=== PATIENT | male | born 1955 | race Caucasian/White ===

== ENCOUNTER 2024-06-12 14:08 | Emergency (ER) | payer BC, SELFPAY ==
[2024-06-12 14:12] VITALS: BP 115/59
--- NOTE | 2024-06-12 15:59 | ED.GENMED ---
History of Present Illness
General
Chief Complaint: Skin Problem
Source: patient and other (Sister)
Time Seen by Provider: 06/12/24 15:17
History of Present Illness
History of Present Illness:
69-year-old male present with a outpatient diagnosis of DVT. Ongoing wound to the right leg. This has been there for weeks. Currently on a cephalosporin and topical antibiotic ointment. No fever chills no chest pain no shortness of breath no
unusual pain in the leg. Patient was sent for further care and possible wound care management.
Past History
Past History
ED Past Medical History: HTN, Hypercholesterolemia and NIDDM
ED Past Surgical History: Orthopedic
Review of Systems
Review of Systems
All Other Systems: Not applicable
Constitutional: Denies fever or chills
Respiratory: Denies trouble breathing
Cardiac: Denies chest pain or syncope
Phy Exam
Physical Exam
Physical Exam:
GENERAL: Alert and oriented in no apparent distress
EYE: Orbits normal.
CARDIAC: Regular rate and rhythm without any obvious murmurs.
LUNGS: Clear breath sounds,normal
ABDOMEN: Soft, without focal tenderness or distention
NEUROLOGICAL: Alert and oriented , grossly non-focal
SKIN: Warm and dry, chronic appearing wound to the right lower anterior tibia approximately 2 x 6 cm. Full thickness. Surrounding hyperpigmentation changes but no obvious cellulitis.
MUSCULOSKELETAL: Mild swelling of the right lower leg with mild swelling towards the ankle. Great distal pulses.
PSYCH: Normal and appropriate interaction.
Course
Orders/Labs/Results
Orders:
Orders
06/12/24 15:49
IV Insert/Care/Rem.- Treatment PRN
06/12/24 16:19
Complete Blood Count/With Diff Urgent
PT/INR [Prothrombin Time] Urgent
PTT Urgent
06/12/24 17:03
Basic Metabolic Panel Urgent
06/12/24 18:05
Rivaroxaban [Xarelto] 15 mg PO NOW STA
Abnormal Lab Results
06/12/24 06/12/24
16:19 17:03
RBC 3.86 L 10^6/uL
(4.70-6.10)
Hgb 11.1 L g/dL
(13.0-18.0)
Hct 33.2 L %
(39.0-52.0)
MPV 3.8 L fL
(7.4-10.4)
Absolute Monos (auto) 0.8 H 10^3/uL
(0.1-0.6)
Monocytes % 11.4 H %
(1.7-9.3)
Chloride 96 L mmol/L
(98-107)
Carbon Dioxide 33 H mmol/L
(22-30)
BUN 30 H mg/dl
(9-20)
Glucose 298 H mg/dl
(70-99)
06/12/24 16:19
06/12/24 17:03
Vital Signs
Initial and Last Documented VS:
Initial Vital Signs
Temp Pulse Resp BP Pulse Ox
97.8 F 71 18 115/59 96
06/12/24 14:12 06/12/24 14:12 06/12/24 14:12 06/12/24 14:12 06/12/24 14:12
Last Documented Vital Signs
Temp Pulse Resp BP Pulse Ox
97.8 F 68 18 108/63 99
06/12/24 14:12 06/12/24 16:22 06/12/24 16:22 06/12/24 16:22 06/12/24 16:22
MDM/Problems Addressed
Differential Diagnosis Includes:
Report sent by the primary care office. Extensive nonocclusive DVT throughout the right lower extremity. The wound clinically does not appear acutely infected. I sent pictures of the wound to our wound care physician. He was in agreement. No
contraindication anticoagulation. No GI bleed. No central bleed. No bleeding disorder. Medical management appropriate would be outpatient oral DOAC continued temporary wound care until followed up by the wound care center.
*Critical Care Note
Total Time (30-74mins, 75-104mins- exclusive of procedures): Not Applicable
Update Note
Update Note:
Patient is remained stable and nontoxic. Again reviewed with wound care. Agree does not indicate admission. Continue local wound care, DOAC. Patient is aware of the risk benefits. No contraindication. Will follow-up closely
ED Attending Note
-
Portions of this chart may have been created with voice recognition software.� Occasional wrong word or��sound alike� substitutions may have occurred due to the inherent limitations of voice recognition software.
Discharge Plan
Departure
Patient Disposition: Home (Routine Discharge)
Date of Disposition: 06/12/24
Time of Disposition: 18:06
Patient with high blood pressure during this ER visit?: No
Discharge Problem:
DVT right lower leg, Chronic wound right lower leg, Hyperglycemia
Instructions: Deep vein thrombosis (blood clot in the leg), Wound Care (DC), Taking oral medicines for blood clots, High Blood Sugar, Adult ED, BLOOD PRESSURE
Prescriptions:
New
Xarelto 20 mg tablet
20 mg PO DAILY Qty: 10 0RF
Xarelto 15 mg tablet
15 mg PO BID 21 Days Qty: 42 0RF
Referrals:
Wound Care Center [Outside] - Follow up in 5-7 days
Isidoro Mendez MD [Family Provider] -
Activity Restrictions/Additional Instructions:
Start with the 15 mg tablet. 1 tablet 2 times per day for 21 days.
Then changed to the 20 mg tablet. However you only take 1 tablet/day
Follow-up closely with your primary physician. This medication will need to be continued beyond the 1 month
Call the wound care center Saturday for close follow-up early in the week. Let them know we talked to the wound care physician
Interventions
Interventions:
*Risk Screen - Suicide Last Done: 06/12/24 14:10
*General Assessment Last Done: 06/12/24 14:12
*Neglect/Abuse Screening Last Done: 06/12/24 14:12
ED- Fall Risk Assessment Last Done: 06/12/24 16:20
*ED COVID-19 Vaccine History Last Done: 06/12/24 16:20
Discharge Date and Time
Print Language: BELARUSIAN
[2024-06-12 16:22] VITALS: BP 108/63
[2024-06-12 16:36] LABS: % Basophils 0.9 % (0-2); % Immature Granulocytes 0.3 % (0-0.5); % Lymphocytes 21.5 % (20.5-51.1); % Monocytes 11.4 % (1.7-9.3); % Neutrophils 62.9 % (42.2-75.2); Absolute Basophils 0.1 10^3/uL (0-0.2); Absolute Eosinophils 0.2 10^3/uL (0-0.7); Absolute Lymphocytes 1.4 10^3/uL (1.2-3.4); Absolute Monocytes 0.8 10^3/uL (0.1-0.6); Absolute Neutrophils 4.2 10^3/uL (1.4-6.5); Hematocrit 33.2 % (39.0-52.0); Hemoglobin 11.1 g/dL (13.0-18.0); Mean Corp Hgb Conc. 33.4 g/dL (33.0-37.0); Mean Corpuscular Hgb 28.8 pg (27.0-31.0); Nucleated Red Blood Cells % 0 % (-); Red Blood Cell Count 3.86 10^6/uL (4.70-6.10); Red Cell Dist. Width 12.6 % (11.5-14.5); White Blood Cell Count 6.6 10^3/uL (4.8-10.8)
[2024-06-12 16:38] LABS: INR 1.08; PT 13.8 Sec (11.4-14.6)
[2024-06-12 16:39] LABS: APTT 29.5 Sec (23.4-35.0)
[2024-06-12 16:49] LABS: Platelet Count 337 10^3/uL (130-400)
[2024-06-12 16:50] LABS: Mean Platelet Volume 3.8 fL (7.4-10.4)
[2024-06-12 17:49] LABS: Blood Urea Nitrogen 30 mg/dl (9-20); Calcium 9.9 mg/dl (8.4-10.2); Carbon Dioxide 33 mmol/L (22-30); Chloride 96 mmol/L (98-107); Glucose 298 mg/dl (70-99); Potassium 4.3 mmol/L (3.5-5.1); Sodium 137 mmol/L (135-145); eGFR > 60.00
[2024-06-12] MEDS: XARELTO 15 MG PO (19:09)
[2024-06-12 19:15] VITALS: BP 124/57
== END 2024-06-12 19:21 | disposition home or self-care (01) ==
LOC: EMR 14:08
PROVIDERS: EMERGENCY PHYSICIAN Emergency Medicine; FAMILY PHYSICIAN Internal Medicine
DX: I82.401 Acute embolism and thrombosis of unspecified deep veins of right lower extremity (principal); S81.801A Unspecified open wound, right lower leg, initial encounter; E11.65 Type 2 diabetes mellitus with hyperglycemia; X58.XXXA Exposure to other specified factors, initial encounter; I10 Essential (primary) hypertension; E78.00 Pure hypercholesterolemia, unspecified
CPT/HCPCS: 99283; 80048; 85025; 85610; 85730

== ENCOUNTER → 2024-06-16 08:19 | Outpatient (REF) | payer BC, SELFPAY | LOC: WOUND 08:19 | PROVIDERS: ATTENDING PHYSICIAN Surgery; FAMILY PHYSICIAN Internal Medicine | DX: I87.311 Chronic venous hypertension (idiopathic) with ulcer of right lower extremity (principal); L97.212 Non-pressure chronic ulcer of right calf with fat layer exposed; I87.2 Venous insufficiency (chronic) (peripheral); I73.9 Peripheral vascular disease, unspecified; Z79.01 Long term (current) use of anticoagulants; I82.4Z1 Acute embolism and thrombosis of unspecified deep veins of right distal lower extremity; I10 Essential (primary) hypertension | CPT/HCPCS: 11042; 99204 ==

== ENCOUNTER → 2024-06-23 10:34 | Outpatient (REF) | payer BC, SELFPAY | LOC: WOUND 10:34 | PROVIDERS: ATTENDING PHYSICIAN Surgery; FAMILY PHYSICIAN Internal Medicine | DX: I87.311 Chronic venous hypertension (idiopathic) with ulcer of right lower extremity (principal); L97.212 Non-pressure chronic ulcer of right calf with fat layer exposed; I87.2 Venous insufficiency (chronic) (peripheral); I73.9 Peripheral vascular disease, unspecified; I82.4Z1 Acute embolism and thrombosis of unspecified deep veins of right distal lower extremity; I10 Essential (primary) hypertension; Z79.01 Long term (current) use of anticoagulants | CPT/HCPCS: 11042 ==

== ENCOUNTER → 2024-07-09 11:34 | Outpatient (REF) | payer BC, SELFPAY | LOC: WOUND 11:34 | PROVIDERS: ATTENDING PHYSICIAN Surgery; FAMILY PHYSICIAN Internal Medicine | DX: I87.311 Chronic venous hypertension (idiopathic) with ulcer of right lower extremity (principal); L97.212 Non-pressure chronic ulcer of right calf with fat layer exposed; I87.2 Venous insufficiency (chronic) (peripheral); I73.9 Peripheral vascular disease, unspecified; I82.4Z1 Acute embolism and thrombosis of unspecified deep veins of right distal lower extremity; I10 Essential (primary) hypertension; Z79.01 Long term (current) use of anticoagulants | CPT/HCPCS: 11042 ==

== ENCOUNTER → 2024-07-21 10:28 | Outpatient (REF) | payer BC, SELFPAY | LOC: WOUND 10:28 | PROVIDERS: ATTENDING PHYSICIAN Surgery; FAMILY PHYSICIAN Internal Medicine | DX: I87.311 Chronic venous hypertension (idiopathic) with ulcer of right lower extremity (principal); L97.212 Non-pressure chronic ulcer of right calf with fat layer exposed; I87.2 Venous insufficiency (chronic) (peripheral); I73.9 Peripheral vascular disease, unspecified; Z79.01 Long term (current) use of anticoagulants; I82.4Z1 Acute embolism and thrombosis of unspecified deep veins of right distal lower extremity; I10 Essential (primary) hypertension | CPT/HCPCS: 99213 ==

== ENCOUNTER → 2024-07-30 09:59 | Outpatient (REF) | payer BC, SELFPAY | LOC: WOUND 09:59 | PROVIDERS: ATTENDING PHYSICIAN Surgery; FAMILY PHYSICIAN Internal Medicine | DX: I87.311 Chronic venous hypertension (idiopathic) with ulcer of right lower extremity (principal); L97.212 Non-pressure chronic ulcer of right calf with fat layer exposed; I87.2 Venous insufficiency (chronic) (peripheral); I73.9 Peripheral vascular disease, unspecified; Z79.01 Long term (current) use of anticoagulants; I82.4Z1 Acute embolism and thrombosis of unspecified deep veins of right distal lower extremity; I10 Essential (primary) hypertension | CPT/HCPCS: 99213 ==

== ENCOUNTER → 2024-08-13 10:30 | Outpatient (REF) | payer BC, SELFPAY | LOC: WOUND 10:30 | PROVIDERS: ATTENDING PHYSICIAN Surgery; FAMILY PHYSICIAN Internal Medicine | DX: I87.311 Chronic venous hypertension (idiopathic) with ulcer of right lower extremity (principal); L97.212 Non-pressure chronic ulcer of right calf with fat layer exposed; I87.2 Venous insufficiency (chronic) (peripheral); I73.9 Peripheral vascular disease, unspecified; I82.4Z1 Acute embolism and thrombosis of unspecified deep veins of right distal lower extremity; Z79.01 Long term (current) use of anticoagulants; I10 Essential (primary) hypertension | CPT/HCPCS: 99213 ==

== ENCOUNTER → 2024-08-28 13:31 | Outpatient (REF) | payer BC, SELFPAY | LOC: RAD 13:31 | PROVIDERS: ATTENDING PHYSICIAN Surgery; FAMILY PHYSICIAN Internal Medicine | DX: I87.311 Chronic venous hypertension (idiopathic) with ulcer of right lower extremity (principal); I73.9 Peripheral vascular disease, unspecified | CPT/HCPCS: 93922; 93925; 93971 ==

== ENCOUNTER → 2024-09-03 10:41 | Outpatient (REF) | payer BC, SELFPAY | LOC: WOUND 10:41 | PROVIDERS: ATTENDING PHYSICIAN Surgery | DX: I87.311 Chronic venous hypertension (idiopathic) with ulcer of right lower extremity (principal); L97.212 Non-pressure chronic ulcer of right calf with fat layer exposed; I87.2 Venous insufficiency (chronic) (peripheral); I73.9 Peripheral vascular disease, unspecified; I10 Essential (primary) hypertension; Z79.01 Long term (current) use of anticoagulants; Z86.718 Personal history of other venous thrombosis and embolism | CPT/HCPCS: 11043; 11046 ==

== ENCOUNTER → 2024-09-10 10:45 | Outpatient (REF) | payer BC, SELFPAY | LOC: WOUND 10:45 | PROVIDERS: ATTENDING PHYSICIAN Surgery; FAMILY PHYSICIAN Internal Medicine | DX: I87.311 Chronic venous hypertension (idiopathic) with ulcer of right lower extremity (principal); L97.212 Non-pressure chronic ulcer of right calf with fat layer exposed; I87.2 Venous insufficiency (chronic) (peripheral); I73.9 Peripheral vascular disease, unspecified; I82.4Z1 Acute embolism and thrombosis of unspecified deep veins of right distal lower extremity; I10 Essential (primary) hypertension; Z79.01 Long term (current) use of anticoagulants | CPT/HCPCS: 99213 ==

== ENCOUNTER 2024-09-15 14:02 | Inpatient (IN) | payer BC, MEDICARE, SELFPAY ==
[2024-09-15] VITALS (20 sets, daily range): BP systolic 102–165; BP diastolic 39–89
--- NOTE | 2024-09-15 10:57 | ED.GENMED ---
History of Present Illness
<EMILE Grimaldo - Last Filed: 09/15/24 13:00>
General
Chief Complaint: Male Genito-Urinary Symptoms
Source: patient and family
Exam Limitations: none
Time Seen by Provider: 09/15/24 10:56
Nursing documentation reviewed up to this point in time: agreed with
History of Present Illness
History of Present Illness:
Patient is a 69-year-old male who presents to the ER complaining of blood in urine for the past 2 days. Patient is on Xarelto for DVT in his right lower extremity .patient is a very poor historian. Pt lives with sister Patient presents with
complaints of blood in urine for the past several days however also mentions he has had at least a 30 pound weight loss over the past several weeks. He recently saw his family doctor and at that time his blood sugars were very high in the 500s.
Sister is at reports patient missed some of his dose of medication. Patient also complains of painful lump to his right inguinal area for the past several weeks. He denies any injury.
Past History
<EMILE Grimaldo - Last Filed: 09/15/24 13:00>
Past History
ED Past Medical History: HTN, Hypercholesterolemia and NIDDM
ED Past Surgical History: Orthopedic
Phy Exam
<EMILE Grimaldo - Last Filed: 09/15/24 13:00>
General Physical Exam
General Presentation: no apparent distress
General age: appears older than age
General Skin: warm and dry
General Habitus: cachetic
General Mental: alert
General Hydration: dry mucous membranes
Cardiovascular Exam
Cardiovascular Exam: regular rate/rhythm, no murmur and normal peripheral pulses
Pulmonary Exam
Pulmonary Exam: lungs clear and no respiratory distress
Gastrointestinal Exam
Gastrointestinal Exam: other (firm over bladder region with + soft mass (hernia) over right inguinal region )
Genitourinary Exam Male
Exam Male: other (+ blood dripping from penis )
Neurological Exam
Neurological Exam: alert and oriented x3
Musculoskeletal Exam
Musculoskeletal Exam: full ROM and other (rle with minimal swelling )
Skin Exam
Skin Exam: normal color and warm/dry
Psychiatric Exam
Psychiatric Exam: normal mood/affect
Course
<EMILE Grimaldo - Last Filed: 09/15/24 13:00>
Orders/Labs/Results
Orders:
Orders
09/15/24 10:57
Urinalysis Reflex To Culture Urgent
Date Specimen was Collected: 09/15/24
Time Specimen was Collected: 11:35
09/15/24 11:17
Iohexol [Omnipaque] See Protocol PO NOW STA
09/15/24 11:18
CT Abd/pel W Iv And Oral Contr Urgent
Comment:
Reason For Exam: abd pain weight loss
0.9% Sodium Chloride 1000 ml [Nss] 1,000 ml IV BOLUS
09/15/24 11:19
Bladder Scan- Treatment ONCE
09/15/24 11:37
Complete Blood Count/With Diff Urgent
Comprehensive Metabolic Panel Urgent
09/15/24 11:43
Leon [Leon Placement- Treatment] ONCE
Reason for insertion: Acute Retention
09/15/24 12:16
Insulin Human Regular [Novolin R] 6 units IV NOW STA
09/15/24 12:30
Leon Catheter [Catheter- Indwelling] As Directed
Reason for insertion: Urology Determination
Size: 22 Fr
Type: 3 way
Nursing to Place Non Medication Order As Directed
Physician Order: Hand-irrigate Leon with sterile solution until outflow is clear to pink
Above order entered?: Yes
09/15/24 12:31
Anti-embolism (JULIA) Hose As Directed
Type: Thigh high
Catheter-Hand Irrigation As Directed
Solution:: Sterile 0.9% NaCl
Amount: 500 ml
Frequency: prn obstruction
Reason for hand irrigation: prn obstruction
Irrigate via:: Catheter directly
Continous Bladder Irrigation As Directed
Solution: Normal Saline (NSS)
Comment: at rate to keep outflow clot-free
Keep urine: Free of clots
Pneumatic Compression Sleeves As Directed
Type: Thigh high
Vital Signs As Directed
Frequency: Per unit guidelines
DX Deep Vein Thrombosis Video Routine
Abnormal Lab Results
09/15/24
11:37
RBC 3.73 L 10^6/uL
(4.70-6.10)
Hgb 10.2 L g/dL
(13.0-18.0)
Hct 31.8 L %
(39.0-52.0)
MCHC 32.1 L g/dL
(33.0-37.0)
Plt Count 430 H 10^3/uL
(130-400)
Absolute Neuts (auto) 9.2 H 10^3/uL
(1.4-6.5)
Absolute Lymphs (auto) 0.3 L 10^3/uL
(1.2-3.4)
Neutrophils % 89.9 H %
(42.2-75.2)
Lymphocytes % 3.2 L %
(20.5-51.1)
Sodium 129 L mmol/L
(135-145)
Potassium 5.2 H mmol/L
(3.5-5.1)
Chloride 90 L mmol/L
(98-107)
Carbon Dioxide 20 L mmol/L
(22-30)
BUN 46 H mg/dl
(9-20)
Glucose 528 H* mg/dl
(70-99)
09/15/24 11:37
09/15/24 11:37
Vital Signs
Initial and Last Documented VS:
Initial Vital Signs
Temp Pulse Resp BP Pulse Ox
98.3 F 108 16 122/79 99
09/15/24 09:26 09/15/24 09:26 09/15/24 09:26 09/15/24 09:26 09/15/24 09:26
Last Documented Vital Signs
Temp Pulse Resp BP Pulse Ox
98.3 F 108 16 133/77 99
09/15/24 09:26 09/15/24 09:26 09/15/24 09:26 09/15/24 11:18 09/15/24 09:26
Cloth Weigher consulted with Physician
Cloth Weigher consulted with physician?: Yes
Name of Physician Consulted: DR Bazzi
<Gilson Bazzi, DO - Last Filed: 09/15/24 11:18>
Orders/Labs/Results
Orders:
Orders
09/15/24 10:57
Urinalysis Reflex To Culture Urgent
Date Specimen was Collected: 09/15/24
Time Specimen was Collected: 11:35
09/15/24 11:17
Iohexol [Omnipaque] See Protocol PO NOW STA
09/15/24 11:18
CT Abd/pel W Iv And Oral Contr Urgent
Comment:
Reason For Exam: abd pain weight loss
0.9% Sodium Chloride 1000 ml [Nss] 1,000 ml IV BOLUS
09/15/24 11:19
Bladder Scan- Treatment ONCE
09/15/24 11:37
Complete Blood Count/With Diff Urgent
Comprehensive Metabolic Panel Urgent
09/15/24 11:43
Leon [Leon Placement- Treatment] ONCE
Reason for insertion: Acute Retention
09/15/24 12:16
Insulin Human Regular [Novolin R] 6 units IV NOW STA
09/15/24 12:30
Leon Catheter [Catheter- Indwelling] As Directed
Reason for insertion: Urology Determination
Size: 22 Fr
Type: 3 way
Nursing [address] Non Medication Order As Directed
Physician Order: Hand-irrigate Leon with sterile solution until outflow is clear to pink
Above order entered?: Yes
09/15/24 12:31
Anti-embolism (JULIA) Hose As Directed
Type: Thigh high
Catheter-Hand Irrigation As Directed
Solution:: Sterile 0.9% NaCl
Amount: 500 ml
Frequency: prn obstruction
Reason for hand irrigation: prn obstruction
Irrigate via:: Catheter directly
Continous Bladder Irrigation As Directed
Solution: Normal Saline (NSS)
Comment: at rate to keep outflow clot-free
Keep urine: Free of clots
Pneumatic Compression Sleeves As Directed
Type: Thigh high
Vital Signs As Directed
Frequency: Per unit guidelines
DX Deep Vein Thrombosis Video Routine
Abnormal Lab Results
09/15/24
11:37
RBC 3.73 L 10^6/uL
(4.70-6.10)
Hgb 10.2 L g/dL
(13.0-18.0)
Hct 31.8 L %
(39.0-52.0)
MCHC 32.1 L g/dL
(33.0-37.0)
Plt Count 430 H 10^3/uL
(130-400)
Absolute Neuts (auto) 9.2 H 10^3/uL
(1.4-6.5)
Absolute Lymphs (auto) 0.3 L 10^3/uL
(1.2-3.4)
Neutrophils % 89.9 H %
(42.2-75.2)
Lymphocytes % 3.2 L %
(20.5-51.1)
Sodium 129 L mmol/L
(135-145)
Potassium 5.2 H mmol/L
(3.5-5.1)
Chloride 90 L mmol/L
(98-107)
Carbon Dioxide 20 L mmol/L
(22-30)
BUN 46 H mg/dl
(9-20)
Glucose 528 H* mg/dl
(70-99)
09/15/24 11:37
09/15/24 11:37
Vital Signs
Initial and Last Documented VS:
Initial Vital Signs
Temp Pulse Resp BP Pulse Ox
98.3 F 108 16 122/79 99
09/15/24 09:26 09/15/24 09:26 09/15/24 09:26 09/15/24 09:26 09/15/24 09:26
Last Documented Vital Signs
Temp Pulse Resp BP Pulse Ox
98.3 F 108 16 133/77 99
09/15/24 09:26 09/15/24 09:26 09/15/24 09:26 09/15/24 11:18 09/15/24 09:26
<EMILE Grimaldo - Last Filed: 09/15/24 13:00>
MDM/Problems Addressed
MDM/Problems Addressed:
Patient is a 61-year-old male who presented to the ER complaint of hematuria. He also complains of a lump and tenderness to his right groin and lower abdomen. Patient presents to the ER very frail cachectic with obvious hematuria he is dripping
blood from his penis on exam he does have right inguinal hernia which is excessive reduced by ED physician. Patient is on Xarelto for known DVT in the right lower extremity. Patient was evaluated by ED physician. Multiple attempts were done to
insert three-way Leon catheter by nurse and by myself however patient seems like he does have a stricture. Urology was notified Dr. Russ did come to the bedside and insert catheter.
Patient's BUN is elevated his hemoglobin is minimally low at 10.2 platelets of 430 normal white count. Patient's blood sugars elevated in the 500s he has an elevated BUN but normal creatinine. He was given fluids and insulin.
Will require admission for hyperglycemia hematuria on anticoagulation
<EMILE Grimaldo - Last Filed: 09/15/24 13:00>
*Pulse Oximetry
Patient hypoxic: no
*Critical Care Note
Total Time (30-74mins, 75-104mins- exclusive of procedures): Not Applicable
ED Attending Note
<EMILE Grimaldo - Last Filed: 09/15/24 13:00>
-
Portions of this chart may have been created with voice recognition software.� Occasional wrong word or��sound alike� substitutions may have occurred due to the inherent limitations of voice recognition software.
<Gilson Bazzi DO - Last Filed: 09/15/24 11:18>
ED Attending Note
Patient seen and examined by attending physician: Yes
I performed the substantive portion of visit, reviewed & personally made and approve the management plan that is documented in note by myself or MARLA.: Yes
ED Attending Note:
I evaluated the patient at bedside. I laid the patient flat and was able to reduce the right inguinal hernia with some mild discomfort to the patient. He appears cachectic and is overall ill-appearing. There is gross hematuria noted at the
urethral meatus. He is on Xarelto.
Discharge Plan
Departure
Patient Disposition: Admit
Date of Disposition: 09/15/24
Time of Disposition: 12:59
Admit to: Med/Surg
Admit to doctor: hospitalized
Presentation/result/management discussed w/ accepting MD/DO: Hospitalist
Patient with high blood pressure during this ER visit?: No
Condition: Fair
Covid-19: Not Applicable
Discharge Problem:
Hematuria, Acute hyperglycemia, Acute dehydration
Prescriptions:
No Action
Xarelto 20 mg tablet
20 mg PO DAILY Qty: 10 0RF
Xarelto 15 mg tablet
15 mg PO BID 21 Days Qty: 42 0RF
Referrals:
Isidoro Mendez MD [Family Provider] -
Interventions
Interventions:
*Risk Screen - Suicide Last Done: 09/15/24 09:26
*General Assessment Last Done: 09/15/24 09:26
*Neglect/Abuse Screening Last Done: 09/15/24 09:26
ED- Fall Risk Assessment Last Done: 09/15/24 11:09
*ED COVID-19 Vaccine History Last Done: 09/15/24 11:09
ED-Male Genitourinary Assessment Last Done: 09/15/24 11:09
Discharge Date and Time
Print Language: MAORI
[2024-09-15] MEDS: NSS 1000 IV ×2 (11:32→16:08)
[2024-09-15] MEDS: OMNIPAQUE 50 ML PO (11:32)
[2024-09-15 11:49] LABS: Hematocrit 31.8 % (39.0-52.0); Hemoglobin 10.2 g/dL (13.0-18.0); Mean Corp Hgb Conc. 32.1 g/dL (33.0-37.0); Mean Corpuscular Hgb 27.3 pg (27.0-31.0); Mean Corpuscular Volume 85.3 fL (80.0-94.0); Mean Platelet Volume 8.2 fL (7.4-10.4); Platelet Count 430 10^3/uL (130-400); Red Blood Cell Count 3.73 10^6/uL (4.70-6.10); Red Cell Dist. Width 14.1 % (11.5-14.5); White Blood Cell Count 10.3 10^3/uL (4.8-10.8)
[2024-09-15 12:11] LABS: % Basophils 0.4 % (0-2); % Eosinophils 0.1 % (0-6); % Immature Granulocytes 0.2 % (0-0.5); % Lymphocytes 3.2 % (20.5-51.1); % Monocytes 6.2 % (1.7-9.3); % Neutrophils 89.9 % (42.2-75.2); ALT (SGPT) 24 U/L (0-50); AST (SGOT) 28 U/L (17-59); Absolute Lymphocytes 0.3 10^3/uL (1.2-3.4); Absolute Monocytes 0.6 10^3/uL (0.1-0.6); Absolute Neutrophils 9.2 10^3/uL (1.4-6.5); Albumin 3.7 g/dl (3.5-5.0); Alkaline Phosphatase 103 U/L (38-126); Blood Urea Nitrogen 46 mg/dl (9-20); Calcium 9.3 mg/dl (8.4-10.2); Carbon Dioxide 20 mmol/L (22-30); Chloride 90 mmol/L (98-107); Glucose 528 mg/dl (70-99); Nucleated Red Blood Cells % 0 % (-); Potassium 5.2 mmol/L (3.5-5.1); Sodium 129 mmol/L (135-145); Total Bilirubin 0.8 mg/dl (0.2-1.3); Total Protein 7.2 g/dl (6.3-8.2); eGFR > 60.00
--- NOTE | 2024-09-15 12:32 | CONS.URO ---
Consultation
-
Requesting Provider: Roselyn
Performing Provider: Jeb
Reason for Consultation: GH; inability to place Leon by ED staff
Medical History
History of Present Illness
Pt reports GH x 1 week.
no known prior hx
Allergies/Home Medications
Allergies
Allergy/AdvReac Type Severity Reaction Status Date / Time
No Known Allergies Allergy Verified 09/15/24 09:26
Home Medications
�Medication �Instructions �Recorded �Confirmed �Type
rivaroxaban 15 mg tablet (Xarelto) 15 mg PO BID 21 days #42 tabs 06/12/24 Rx
rivaroxaban 20 mg tablet (Xarelto) 20 mg PO DAILY #10 tabs 06/12/24 Rx
Physical Exam
Vital Signs
Vital Signs
Temp Pulse Resp BP Pulse Ox
98.3 F 108 16 133/77 99
09/15/24 09:26 09/15/24 09:26 09/15/24 09:26 09/15/24 11:18 09/15/24 09:26
Lab / Testing Results
Laboratory Results
09/15/24 11:37
09/15/24 11:37
Physical Exam
Phallus: sclerotic glans with stenotic meatus
verbal consent obtained in presence of
phallus prepped
filiform pass then 16-22 Fr followers
then 22 Fr 3-way Leon placed with return of copious darkly bloody urine
Assessment / Plan
-
Gross Hematuria of unknown etiology
Rec:
RN to hand-irrigate Leon until clear
CBI
[2024-09-15] MEDS: NOVOLIN R 6 UNITS IV (12:49)
--- NOTE | 2024-09-15 13:18 | HPS.HSE ---
Family Physician
-
Family Physician: Isidoro Mendez MD
Chief Complaint
-
Hematuria
History of Present Illness
Patient is a 69 y/o male past medical history of diabetes mellitus, hypertension, hyperlipidemia, and DVT on anticoagulation who presents with hematuria. Patient is a limited historian and does not provide a lot of details in regards to his past
medical history. Patient reports blood in his urine for the past week or so. He report some difficulty passing urine due to clots. He is also complaining about a bulge in his right groing which was reduced while in the emergency department. He
also reports a 20-30lb weight loss recently.
Medical History
Past Medical History
Past Medical History: Reports Other
Additional Past Medical History:
Diabetes Mellitus, Type II
Essential Hypertension
Hyperlipidemia
Right Lower Ext DVT - May 2024
?Bipolar Disorder?
Past Surgical History: Reports Other
Additional Past Surgical History:
Right Hand Surgery
Social History
Tobacco: Former Smoker (Quit in 2013)
Alcohol: None
Family History
Family History: Not pertinent
Allergies / Home Medications
Allergies reflects when Allergies were last updated in [employer].
Home Medications with original date entered in [employer]
Allergy/Medication List:
Allergies
Allergy/AdvReac Type Severity Reaction Status Date / Time
No Known Allergies Allergy Verified 09/15/24 09:26
Home Medications
rivaroxaban 20 mg tablet (Xarelto) 20 mg PO DAILY #10 tabs 06/12/24
aspirin 81 mg tablet,delayed release 81 mg PO DAILY 09/15/24
atorvastatin 20 mg tablet 20 mg PO DAILY 09/15/24
benztropine 1 mg tablet 1 mg PO BID 09/15/24
collagenase clostridium histo. 250 unit/gram topical ointment (Santyl) 1 applic topical DAILY 09/15/24
empagliflozin 25 mg tablet (Jardiance) 25 mg PO DAILY 09/15/24
glyburide 5 mg-metformin 500 mg tablet 2 tab PO DAILY 09/15/24
multivitamin-ferrous fumarate-folic acid 18 mg-400 mcg tablet (Centrum) 1 tab PO DAILY 09/15/24
tirzepatide 7.5 mg/0.5 mL subcutaneous pen injector (Mounjaro) 7.5 mg SC TU 09/15/24
trazodone 100 mg tablet 200 mg PO HS 09/15/24
ziprasidone HCl 80 mg capsule 80 mg PO BID 09/15/24
Review of Systems
-
A 12 point ROS was completed and negative except as noted: Yes
Constitutional: Denies Fever or Chills
Respiratory: Denies Cough or Trouble Breathing
Cardiac: Denies Chest Pain or Palpitations
Abdomen/GI: Denies Abdominal Pain
: Reports See HPI
Physical Exam
Vital Signs
Vital Signs
Temp Pulse Resp BP Pulse Ox
98.3 F 108 16 133/77 99
09/15/24 09:26 09/15/24 09:26 09/15/24 09:26 09/15/24 11:18 09/15/24 09:26
Physical Exam
General: Conversant, Appears Chronically Ill and Other (Cachectic )
HEENT: Anicteric and Moist mucous membranes
Respiratory: Clear and Non Labored Respirations
Cardiac: S1/S2, Regular Rhythm and Tachycardia (Slightly)
GI: Soft, Non Tender and Other (Right groin hernia reduced by ED provider prior to my evaluaton)
Genito-urinary: Leon and Continuous Bladder Irrigation (Dark red wine colored)
Musculoskeletal: No Clubbing, No Cyanosis and Other (Chronic venous stasis changes right lower extremity)
Skin: Warm, Dry and Ulcers (Non-healing right lower extremity wound with large amount of slough, but no surrounding eyrthema)
Neuro: Awake, Alert, Oriented and Nonfocal/grossly intact
Psych: Calm
Laboratory Results
-
09/15/24 11:37
09/15/24 11:37
Laboratory Results
Total Bilirubin 0.8 mg/dl (0.2-1.3) 09/15/24 11:37
AST 28 U/L (17-59) 09/15/24 11:37
ALT 24 U/L (0-50) 09/15/24 11:37
Alkaline Phosphatase 103 U/L (38-126) 09/15/24 11:37
Data Reviewed
-
CT Scan: Other (CT scan is pending)
Lab Data: Labs Reviewed by me
Impression/Plan
-
Gross Hematuria
-Consult Urology
-Continue CBI
-Hold aspirin and Xarelto
-Await CT scan result
Diabetes Mellitus, uncontrolled
-Check HgbA1c
-Hold outpatient
-Start low dos Lantus
-Monitor sugars and continue coverage insulin
Weight Loss, possibly related to malignancy vs uncontrolled DM vs Mounjaro
-Consult Dietary
-Discontinue Mounjaro
-Await CT scan
RLE DVT
-Xarelto on hold due hematuria
-Recheck Ultrasound
RLE Venous Ulcer
-Consult Wound Care
Hyperlipidemia
-Continue atorvastatin
?Bipolar Disorder?
-Patient unable to tells my why is on Geodon and Cogentin
-Attempt to obtain records from PCP to clarify history
Right Inguinal Hernia -Reduced in ED
-Follow-up with surgery as outpatient
DVT proph: SCDs
Code Status: Full Code
[2024-09-15 14:51] LABS: Glucose - Point of Care 419 mg/dl (70-99)
[2024-09-15 15:10] LABS: Urine Albumin 3+ (Neg - Trace); Urine Bilirubin Negative (Negative); Urine Character Bloody (Clear); Urine Color Red; Urine Glucose 2+ (Negative); Urine Ketone Negative (Negative); Urine Leukocyte Trace (Negative); Urine Nitrite Negative (Negative); Urine Occult Blood 4+ (Negative); Urine Urobilinogen Negative (Neg - 1+); Urine pH 6.5 (5.0-9.0)
[2024-09-15 15:24] LABS: Urine Red Blood Cell >100 /HPF (0-2); Urine Squamous Cell 0-2 /LPF (Few); Urine White Cell 26-30 /HPF (0-5)
[2024-09-15 15:32] LABS: Glucose 377 mg/dl (70-99)
[2024-09-15 16:57] LABS: Glucose - Point of Care 383 mg/dl (70-99)
[2024-09-15] MEDS: NOVOLOG FLEXPEN-MODERATE RESISTANCE 9 UNITS SC (17:05)
[2024-09-15] MEDS: NOVOLOG FLEXPEN 10 UNITS SC (17:05)
[2024-09-15] MEDS: COGENTIN 1 MG PO (19:32)
[2024-09-15] MEDS: TYLENOL 650 MG PO (19:33)
[2024-09-15 21:53] LABS: Glucose - Point of Care 150 mg/dl (70-99)
[2024-09-15] MEDS: DESYREL 200 MG PO (22:51)
[2024-09-15] MEDS: LANTUS 0.1 UNITS SC (22:54)
[2024-09-15 23:00] LABS: Glucose - Point of Care 164 mg/dl (70-99)
[2024-09-16] VITALS (7 sets, daily range): BP systolic 84–133; BP diastolic 42–78; BMI 17.0
[2024-09-16] MEDS: ROCEPHIN 1000 MG IV ×2 (00:13→23:54)
[2024-09-16] MEDS: STERILE WATER FOR INJECTION 10 ML IV ×2 (00:14→23:55)
[2024-09-16 01:12] LABS: Hematocrit 23.1 % (39.0-52.0); Hemoglobin 7.5 g/dL (13.0-18.0)
--- NOTE | 2024-09-16 01:44 | W.PN.UPDATE ---
Update Note
Progress Note Update
Notified by RN that repeat Hgb 7.5, previously 10.2. Patient evaluated, CBI pink tinged, abdomen distended and hard, patient stated no pain but when abdomen palpated, very tender to palpation. Personally, hand irrigated CBI, removed many small
clots. CBI now draining darker pink w/many small clots. Abdomen soft and nontender after hand irrigation. Increased rate of CBI. Will get AM labs early to monitor Hgb. Plan to transfuse for Hgb <7.0.
[2024-09-16 04:22] LABS: Hematocrit 27.4 % (39.0-52.0); Hemoglobin 8.7 g/dL (13.0-18.0); Mean Corp Hgb Conc. 31.8 g/dL (33.0-37.0); Mean Corpuscular Hgb 27.2 pg (27.0-31.0); Mean Corpuscular Volume 85.6 fL (80.0-94.0); Platelet Count 364 10^3/uL (130-400); Red Cell Dist. Width 14.4 % (11.5-14.5); White Blood Cell Count 20.5 10^3/uL (4.8-10.8)
[2024-09-16 05:01] LABS: Blood Urea Nitrogen 54 mg/dl (9-20); Calcium 9.2 mg/dl (8.4-10.2); Carbon Dioxide 28 mmol/L (22-30); Chloride 102 mmol/L (98-107); Glucose 84 mg/dl (70-99); Potassium 4.5 mmol/L (3.5-5.1); Sodium 135 mmol/L (135-145); eGFR > 60.00
[2024-09-16] MEDS: TYLENOL 650 MG PO (05:18)
[2024-09-16 07:15] LABS: Glucose - Point of Care 121 mg/dl (70-99)
[2024-09-16] MEDS: COGENTIN 1 MG PO ×2 (08:44→19:44)
[2024-09-16] MEDS: LIPITOR 20 MG PO (08:44)
[2024-09-16] MEDS: NSS 1000 IV (08:45)
[2024-09-16] MEDS: NOVOLOG FLEXPEN-MODERATE RESISTANCE SC (08:46)
[2024-09-16] MEDS: SANTYL OINTMENT 1 APPLIC TOPICAL (09:07)
[2024-09-16] MEDS: ZOFRAN 4 MG IV (09:55)
[2024-09-16] MEDS: MIRALAX 17 GRAMS PO (09:55)
[2024-09-16] MEDS: COLACE PO ×3 (09:55→19:44)
--- NOTE | 2024-09-16 10:07 | WOUNDNOTE ---
RIGHT LOWER LEG
--- NOTE | 2024-09-16 10:07 | WOUNDNOTE ---
LEFT LOWER ANTERIOR LEG
--- NOTE | 2024-09-16 10:10 | WOUNDNOTE ---
WON RN note: Patient admitted with hematuria hyperglycemia and dehydration.
See H&P for complete history.
PMH: NIDDM, HTN, Depression, R leg DVT and goes to [facility] for R leg wound.
Wound Location and type/assessment: Patient admitted with: R lower leg venous ulcer, pink mixed with yellow slough, drainage large, wound o.5cm depth. + palpable pedal pulses, no edema. R heel intact, boggy. L heel with cracked fissure and black
fuzz from sock stuck inside. L anterior leg with ring of red rash. Patient states it sometimes itches and has a dog at home who goes outside. Suspect L leg is ring worm, nurse reports hospitalist also suspected this. Turns to side with assist, large
formed brown BM upon assessment. Sacrum stage 1 PI, silicone foam in use. Patient appears very thin, is 108lbs on admission.
Appetite: Poor, patient states he vomited this morning. Dietary on consult.
Pressure redistribution devices in place: Accumax, easy to turn, pillow under calves.
Plan: Santyl to R leg wound with adaptic, alginate, abd pad and jesse daily. A&D ointment to L anterior leg and heel. Protective foams to heels and offloading with pillow under calves.
Will confirm orders with hospitalist and updated nurse Dalila, elizabeth nurse suspected ring worm site.
Updated care plan and will follow as needed.
Note to case management of equipment requested for discharge: VN
Recommend follow up at wound care center upon discharge.
--- NOTE | 2024-09-16 12:02 | W.PN.URO.CBU ---
Today's Communication / Plan
-
will post for OR Saturday: cysto, clot evacuation, fulguration and possible resection of bleeding bladder or prostate tissues
Medicine to address anemia and other issues to optimize for surgery/anesthesia
Assessment / Plan
-
Gross hematuria
UTI
Urethral meatal stenosis
bilateral hydroureteronephrosis
Anemia
Diagnosis
-
Date of Service: September 16, 2024
-
Patient Diagnosis:
Gross hematuria
UTI
Urethral meatal stenosis
bilateral hydroureteronephrosis
Objective
-
Vital Signs
Temp Pulse Resp BP Pulse Ox
98.0 F 113 22 92/67 96
09/16/24 11:47 09/16/24 11:47 09/16/24 11:47 09/16/24 11:47 09/16/24 11:47
Intake and Output
09/15/24 09/16/24 09/17/24
06:59 06:59 06:59
Output Total 1550 / 1550
Balance -1550 / -1550
Output:
Urine, Leon 1400 / 1400
True Urine Output from CBI 150 / 150
Other:
Number of unmeasured liquid
stools
Rectum 3
Laboratory Results
09/16/24 04:15
09/16/24 04:15
Physical Exam
-
Urine via Leon is not bloody
[2024-09-16 12:19] LABS: Glucose - Point of Care 161 mg/dl (70-99)
[2024-09-16] MEDS: LOTRIMIN 1% TOPICAL SOLUTION 1 APPLIC TOPICAL ×2 (12:31→19:45)
[2024-09-16] MEDS: NOVOLOG FLEXPEN-MODERATE RESISTANCE 1 UNITS SC ×2 (12:32→17:11)
--- NOTE | 2024-09-16 12:35 | W.PN.HOSP.TC ---
Today's Communication/Plan
-
Monitor vitals
See plan
Continue with CBI per urology
Continue with antibiotics
Hold Xarelto
Called sister, left voicemail
Clears for now
Continue with insulin
Assessment / Plan
Assessment / Plan
General: Conversant, Appears Chronically Ill and Other (Cachectic )
HEENT: Anicteric and Moist mucous membranes
Respiratory: Clear and Non Labored Respirations
Cardiac: S1/S2, Regular Rhythm and Tachycardia (Slightly)
GI: Soft, Non Tender and Other (Right groin hernia reduced by ED)
Genito-urinary: Leon and Continuous Bladder Irrigation (Dark red wine colored)
Musculoskeletal: (Chronic venous stasis changes right lower extremity)
Skin: Warm, Dry and Ulcers (Non-healing right lower extremity wound with large amount of slough, but no surrounding eyrthema)
Neuro: Awake, Alert, Oriented and Nonfocal/grossly intact
Psych: Calm
Gross Hematuria
-Urology following
-Continue CBI
-Hold aspirin and Xarelto
CT scan with urinary bladder wall is thickened and enhancing with likely debris and gas in the urinary bladder. There is mild bilateral hydroureteronephrosis with bilateral urothelial enhancement. Findings are overall are suspicious for urinary
tract infection although intravesicular blood products could appear similar. Urinary bladder malignancy is possible.
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
suspect likely will need cystoscopy
Severe colonic stool burden
2.6 cm partially calcified gallstone
Concern for sepsis likely secondary to UTI, check blood culture
Suspect UTI
cw abx
follow cx
Suspect acute blood loss anemia 2/2 hematuria
monitor
check iron panel, b12,folate
Diabetes Mellitus, uncontrolled
-HgbA1c 11
will ask patient if he will be ok with going home eventually on insulin
-Hold outpatient Po meds for now
-Started low dos Lantus; mealtime likely when eating regular diet
-Monitor sugars and continue coverage insulin
N/V likely 2/2 constipation
laxatives
clears for now
Weight Loss, possibly related to malignancy vs uncontrolled DM vs Mounjaro
-Consult Dietary
-Discontinue Mounjaro
-Await CT scan noted above
denies any blood in stool
will need evaluation with hem/onc outpatient given blood clots and this new weight loss
RLE DVT
-Xarelto on hold due hematuria
-Recheck Ultrasound nonocclusive thrombus within the right common femoral, femoral and popliteal veins, overall similar in appearance to prior.
possible ringworm LLE
start antifungals
RLE Venous Ulcer
Wound Care following
Hyperlipidemia
-Continue atorvastatin
?Bipolar Disorder?
-Patient unable to tells my why is on Geodon and Cogentin
-Attempt to obtain records from PCP to clarify history
Right Inguinal Hernia -Reduced in ED
-Follow-up with surgery as outpatient
DVT proph: SCDs
Code Status: Full Code
I spent a total of 52 minutes with the patient or on the floor. More than 50% of this time involved counseling and coordination of care.
Anticipated Discharge: > 48 hours
Subjective/Interval History
-
Date of Service: September 16, 2024
denies pain
Objective Data
-
Labs:
Laboratory Results
09/16/24 09/16/24
00:35 04:15
WBC 20.5 H
Hgb 7.5 L D 8.7 L
Hct 23.1 L 27.4 L
Plt Count 364
Sodium 135
Potassium 4.5
Chloride 102
Carbon Dioxide 28
BUN 54 H
Creatinine 1.1
Glucose 84
Calcium 9.2
Vital Signs:
Vital Signs
Temp Pulse Resp BP Pulse Ox
98.0 F 113 22 92/67 96
09/16/24 11:47 09/16/24 11:47 09/16/24 11:47 09/16/24 11:47 09/16/24 11:47
I&O
09/15/24 09/16/24 09/17/24
06:59 06:59 06:59
Output Total 1550 / 1550
Balance -1550 / -1550
[2024-09-16 13:23] LABS: Iron 21 ug/dl (49-181)
[2024-09-16 13:32] LABS: Percent Saturation 9 % (20-50); Total Iron Binding Capacity 217 ug/dl (261-462)
--- NOTE | 2024-09-16 14:58 | CM ---
Pt seen bedside. Initial assessment completed
Pt lives w/ sister in a [facility]. Pt is independent, denies DME use for ambulating or daily functioning
Denies SNF/PT/OT
Address, point of contact and insurance
PCP: Dr. Isidoro Mendez
Pharmacy: [facility]
Current w/ IV abx
Plan: CM will cont to follow for d/c planning
[2024-09-16 15:52] LABS: Folate > 20.0 ng/ml (2.76-20); Vitamin B12 922 pg/ml (239-931)
[2024-09-16 16:58] LABS: Glucose - Point of Care 172 mg/dl (70-99)
[2024-09-16] MEDS: DESYREL 200 MG PO (21:26)
[2024-09-16 21:45] LABS: Glucose - Point of Care 266 mg/dl (70-99)
[2024-09-16] MEDS: LANTUS 0.1 UNITS SC (22:30)
[2024-09-17] VITALS (8 sets, daily range): BP systolic 97–144; BP diastolic 51–74
[2024-09-17] MEDS: NSS 1000 IV ×2 (01:34→09:38)
[2024-09-17 07:28] LABS: Glucose - Point of Care 185 mg/dl (70-99)
[2024-09-17] MEDS: SANTYL OINTMENT 1 APPLIC TOPICAL (07:31)
[2024-09-17] MEDS: LIPITOR 20 MG PO (07:31)
[2024-09-17] MEDS: MIRALAX 17 GRAMS PO (07:31)
[2024-09-17] MEDS: LOTRIMIN 1% TOPICAL SOLUTION 1 APPLIC TOPICAL ×2 (07:32→21:02)
[2024-09-17] MEDS: COLACE 100 MG PO ×2 (07:33→19:42)
[2024-09-17] MEDS: COGENTIN 1 MG PO ×2 (07:33→19:42)
[2024-09-17] MEDS: NOVOLOG FLEXPEN-MODERATE RESISTANCE 1 UNITS SC (07:34)
[2024-09-17 08:09] LABS: ALT (SGPT) 21 U/L (0-50); AST (SGOT) 24 U/L (17-59); Albumin 2.5 g/dl (3.5-5.0); Alkaline Phosphatase 103 U/L (38-126); Blood Urea Nitrogen 58 mg/dl (9-20); Calcium 8.4 mg/dl (8.4-10.2); Carbon Dioxide 25 mmol/L (22-30); Chloride 107 mmol/L (98-107); Glucose 156 mg/dl (70-99); Potassium 3.4 mmol/L (3.5-5.1); Sodium 140 mmol/L (135-145); Total Bilirubin 0.2 mg/dl (0.2-1.3); Total Protein 5.4 g/dl (6.3-8.2); eGFR 59.84
[2024-09-17 08:25] LABS: Hematocrit 21.5 % (39.0-52.0); Hemoglobin 6.8 g/dL (13.0-18.0); Mean Corp Hgb Conc. 31.6 g/dL (33.0-37.0); Mean Corpuscular Hgb 26.6 pg (27.0-31.0); Mean Platelet Volume 8.5 fL (7.4-10.4); Platelet Count 294 10^3/uL (130-400); Red Blood Cell Count 2.56 10^6/uL (4.70-6.10); Red Cell Dist. Width 14.7 % (11.5-14.5); White Blood Cell Count 17.8 10^3/uL (4.8-10.8)
[2024-09-17 09:32] LABS: Hematocrit 23.2 % (39.0-52.0); Hemoglobin 7.5 g/dL (13.0-18.0)
[2024-09-17] MEDS: KCL 20 MEQ PO (09:37)
[2024-09-17 09:54] LABS: Absolute Neutrophils -Man Diff 16.3 10^3/uL (1.4-6.5); Band Neutrophils 5 % (0-3); Lymphocytes 2 % (20-51); Segmented Neutrophils 87 % (42-75)
[2024-09-17 09:55] LABS: Hypochromasia 1+; Metamyelocytes 3 % (-); Microcytosis 1+; Monocytes 3 % (2-9); Normal RBC Morphology No; Platelets Checked Yes; Total Cells Counted 100
--- NOTE | 2024-09-17 10:07 | PN.CDI ---
CDI
- -
CDI:
Physician Documentation Request
Admit Date: 09/15/24 14:02
Dear Doctor Jeb,
Please review the following and provide your response in the progress notes.
Clinical Indicators:
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
#...reports a 20 lb weight loss over the past 3 months.
#...Our records indicate that he weighed 132 lbs on 06/12/24.
#...Now he weighs 108 lbs. This is a 19% BW loss over 3 months (significant).
#...meets AND and ASPEN criteria for severe protein calorie malnutrition of chronic illness
#...due to a loss of 19% BW over 3 months and
#...severe muscle loss of his temporal and clavicle regions
Based on the above information and your assessment, which of the following most accurately represents the patient's nutritional status?
Severe protein calorie malnutrition of chronic illness
Other (please specify)
[place] Criteria (ACP Hospitalist 2017)
2 or more criteria must be present for either
non severe or severe malnutrition
Note that the criteria differs related to the
presence of an acute or chronic illness
Chronic Illness
Energy Intake Non Severe: <75% for >1 month
Severe: <75% for >1 month
Weight Loss Non Severe: 5% over 1 month
7.5% over 3 months
10% over 6 months
20% over 1 year
Severe: >5% over 1 month
>7.5% over 3 months
>10% over 6 months
>20% over 1 year
Body Fat Non Severe: Mild Loss
Severe: Severe Loss
Muscle Mass Non Severe: Mild Loss
Severe: Severe Loss
Use of terms such as suspected, likely, concern for, or probable (associated with a specific diagnosis that is being evaluated, monitored, or treated as if it exists) are acceptable and can be coded in the inpatient setting, when documented at the
time of discharge.
Thank you,
Liz Fleming RN BSN CCDS
CDI Specialist
please contact via [facility]
Please use your independent medical judgment in providing your response.
--- NOTE | 2024-09-17 10:13 | PN.CDI ---
CDI
- -
CDI:
Physician Documentation Request
Admit Date: 09/15/24 14:02
Dear Doctor Jeb,
Please review the following and provide your response in the progress notes.
Clinical Indicators:
PN, 09/16
#Gross Hematuria
#...-Hold aspirin and Xarelto
Based on the above and your clinical assessment, please clarify the relationship, if any, between these conditions:
Yes, Hematuria is enhanced by/related to/associated with/due to Xarelto and Aspirin.
No, Hematuria is not enhanced by/related to/associated with/due to Xarelto and Aspirin but it is due to ___. (Please specify)
Other (please specify)
Use of terms such as suspected, likely, concern for, or probable (associated with a specific diagnosis that is being evaluated, monitored, or treated as if it exists) are acceptable and can be coded in the inpatient setting, when documented at the
time of discharge.
Thank you,
Liz Fleming RN BSN CCDS
CDI Specialist
please contact via tiger text
Please use your independent medical judgment in providing your response.
--- NOTE | 2024-09-17 10:16 | W.PN.URO.CBU ---
Today's Communication / Plan
-
posted for OR Saturday: cysto, clot evacuation, fulguration and possible resection of bleeding bladder or prostate tissues -- consent signed
Medicine to address anemia and other issues to optimize for surgery/anesthesia
Assessment / Plan
-
Gross hematuria
UTI
Urethral meatal stenosis
bilateral hydroureteronephrosis
Anemia
Diagnosis
-
Date of Service: September 17, 2024
-
Patient Diagnosis:
Gross hematuria
UTI
Urethral meatal stenosis
bilateral hydroureteronephrosis
Anemia
Subjective
-
feels 'fine'
Objective
-
Vital Signs
Temp Pulse Resp BP Pulse Ox
98.4 F 104 18 97/57 96
09/17/24 07:00 09/17/24 07:00 09/17/24 07:00 09/17/24 07:00 09/17/24 07:00
Intake and Output
09/16/24 09/17/24 09/18/24
06:59 06:59 06:59
Intake Total 1740 / 1740
Output Total 1550 / 1550 5850 / 5850
Balance -1550 / -1550 -4110 / -4110
Intake:
Oral fluids 1020 / 1020
IV fluids (Total) 720 / 720
Output:
Urine, Leon 1400 / 1400
True Urine Output from CBI 150 / 150 5750 / 5750
True urine output from hand 100 / 100
irrigation
Other:
Number of unmeasured liquid
stools
Rectum 3
Laboratory Results
09/17/24 09:02
09/17/24 06:29
Physical Exam
-
Genitalia -Leon is draining clear outflow
--- NOTE | 2024-09-17 10:20 | PN.CDI ---
CDI
- -
CDI:
Physician Documentation Request
Admit Date: 09/15/24 14:02
Dear Doctor Jeb,
Please review the following and provide your response in the progress notes.
Clinical Indicators:
09/16/24 10:10 (created 09/16/24 11:09) - Wound Note
#Wound Location and type/assessment:
#....Patient admitted with:
#R lower leg venous ulcer, pink mixed with yellow slough, drainage large,
#...wound o.5cm depth. + palpable pedal pulses, no edema.
#Sacrum stage 1 PI, silicone foam in use.
Physician documentation of the type and location of wounds is required for compliant documentation. Based on the above clinical findings and your assessment, please provide the following in your progress note:
1. Location of the ulcer/wound, including laterality.
2. Type (etiology) of ulcer/wound:
- Diabetic ulcer
- Arterial (ischemic) ulcer
- Venous stasis ulcer
- Pressure (decubitus) ulcer
- Other
3. For a non-pressure ulcer, please indicate the depth/severity:
- Limited to the breakdown of skin
- With fat layer exposed
- With necrosis of muscle
- With necrosis of bone
- Other
4. If a pressure ulcer, please also include the stage* of the ulcer:
- Stage 1 - Skin intact, non-blanchable redness
- Stage 2 - Partial thickness loss of dermis, includes intact or open blister
- Stage 3 - Full thickness tissue not including bone, tendon or muscle
- Stage 4 - Full thickness tissue loss, including exposed bone, tendon or muscle
- Unstageable - Full thickness loss in which the base of the ulcer is covered by slough (yellow, mack, norris, green or brown) and/or eschar (mack, brown or black) in the wound bed.
Use of terms such as suspected, likely, concern for, or probable (associated with a specific diagnosis that is being evaluated, monitored, or treated as if it exists) are acceptable and can be coded in the inpatient setting, when documented at the
time of discharge.
Thank you,
Liz Fleming RN BSN CCDS
CDI Specialist
please contact via tiger text
Please use your independent medical judgment in providing your response.
*Source: National Pressure Ulcer Advisory Panel (NPUAP)
[2024-09-17 11:38] LABS: Glucose - Point of Care 146 mg/dl (70-99)
[2024-09-17] MEDS: NOVOLOG FLEXPEN-MODERATE RESISTANCE SC (11:49)
--- NOTE | 2024-09-17 11:51 | CON.ONC ---
Impression
Impression
Profound gross hematuria rule out malignancy
Right lower extremity DVT
Venous stasis ulcers
Diabetes mellitus with weight loss
Plan
Plan
In the setting of acute DVT 08/28 common femoral vein
Active bleeding precludes timely anticoagulation
IVC filter for protection against pulmonary embolus would be reasonable
Sequential TEDS
Patient History
History of Present Illness
Patient is a 69 y/o male past medical history of diabetes mellitus, hypertension, hyperlipidemia, and DVT on anticoagulation who presents with hematuria. Patient is a limited historian and does not provide a lot of details in regards to his past
medical history. Patient reports blood in his urine for the past week or so. He report some difficulty passing urine due to clots. He is also complaining about a bulge in his right groing which was reduced while in the emergency department. He
also reports a 20-30lb weight loss recently.
Past-Medical/Surgical History
Past Medical History
Diabetes Mellitus, Type II
Essential Hypertension
Hyperlipidemia
Right Lower Ext DVT - May 2024
Past Surgical History
Right Hand Surgery
Social History
Tobacco: Former Smoker (Quit in 2013)
Alcohol: None
Family History
Family History: Not pertinent
Patient Medication
�Medication �Instructions �Recorded �Confirmed �Last Taken �Type
aspirin 81 mg tablet,delayed 81 mg PO DAILY Blood Clot 09/15/24 09/15/24 09/15/24 History
release Prevention/Tx
atorvastatin 20 mg tablet 20 mg PO DAILY High Cholesterol 09/15/24 09/15/24 09/15/24 History
benztropine 1 mg tablet 1 mg PO BID PARKINSONISM 09/15/24 09/15/24 09/15/24 History
collagenase clostridium histo. 250 1 applic topical DAILY 09/15/24 09/15/24 09/15/24 History
unit/gram topical ointment (Santyl)
empagliflozin 25 mg tablet 25 mg PO DAILY Diabetes 09/15/24 09/15/24 09/15/24 History
(Jardiance)
glyburide 5 mg-metformin 500 mg 2 tab PO DAILY Diabetes 09/15/24 09/15/24 09/15/24 History
tablet
multivitamin-ferrous 1 tab PO DAILY Supplement 09/15/24 09/15/24 09/15/24 History
fumarate-folic acid 18 mg-400 mcg
tablet (Centrum)
tirzepatide 7.5 mg/0.5 mL 7.5 mg SC TU Diabetes 09/15/24 09/15/24 09/15/24 History
subcutaneous pen injector
(Mounjaro)
trazodone 100 mg tablet 200 mg PO HS Sleep 09/15/24 09/15/24 09/14/24 History
ziprasidone HCl 80 mg capsule 80 mg PO BID Mental Health/Anxiety 09/15/24 09/15/24 09/15/24 History
rivaroxaban 20 mg tablet (Xarelto) 20 mg PO DAILY Blood Clot 09/16/24 09/15/24 09/15/24 History
Prevention/Tx
Active Medications
Generic Name Dose Route Start Last Admin
Trade Name Freq PRN Reason Stop Dose Admin
Acetaminophen 650 mg 09/15/24 15:29 09/16/24 05:18
Acetaminophen 325 Mg Tablet PO 10/13/24 15:28 650 mg
Q4HPRN PRN Administration
mild pain/ fever>100.5F
Atorvastatin Calcium 20 mg 09/16/24 08:00 09/17/24 07:31
Atorvastatin (Lipitor) 20 Mg Tablet PO 10/14/24 07:59 20 mg
DAILY SALIMA Administration
Benztropine Mesylate 1 mg 09/15/24 20:00 09/17/24 07:33
Benztropine 1 Mg Tablet PO 10/13/24 19:59 1 mg
BID SALIMA Administration
Bisacodyl 10 mg 09/16/24 09:13
Bisacodyl 10 Mg Rectal Suppository RECTAL 10/14/24 09:12
DAILYPRN PRN
constipation
Ceftriaxone Sodium 1,000 mg 09/16/24 00:00 09/16/24 23:54
Ceftriaxone 1000 Mg / 10 Ml Vial IV 1,000 mg
Q24H SALIMA Administration
Clotrimazole 0 applic 09/16/24 12:00 09/17/24 07:32
Clotrimazole 1 % (Topical Solution) 30 Ml Bottle TOPICAL 10/14/24 11:59 1 applic
BID SALIMA Administration
Collagenase 0 applic 09/16/24 09:00 09/17/24 07:31
Collagenase Ointment 2.5 Gram Jar TOPICAL 10/14/24 08:59 1 applic
DAILY SALIMA Administration
Dextrose 12.5 grams 09/15/24 15:29
Dextrose 50% (0.5 Grams/Ml) 50 Ml Syringe IV 10/13/24 15:28
[id number] PRN
hypoglycemia
Protocol
Docusate Sodium 100 mg 09/16/24 09:15 09/17/24 07:33
Docusate Sodium 100 Mg Capsule PO 10/14/24 09:14 100 mg
BID SALIMA Administration
Glucagon 1 mg 09/15/24 15:29
Glucagon 1 Mg Vial IM 10/13/24 15:28
PRN PRN
hypoglycemia
Protocol
Insulin Glargine 10 units/ 0.1 mls @ 0 mls/hr 09/15/24 22:00 09/16/24 22:30
Device SC 10/13/24 21:59 0.1 mls
HS SALIMA Administration
As Directed
Sodium Chloride 1,000 mls @ 100 mls/hr 09/17/24 09:00 09/17/24 09:38
Nss IV 1,000 mls
.Q10H SALIMA Administration
Gentamicin Sulfate 150 mg/ 53.75 mls @ 100 mls/hr 09/18/24 10:00
Sodium Chloride IV 09/18/24 10:32
ONCE ONE
Insulin Aspart 0 units 12/17/24 16:30 09/17/24 11:49
Insulin Aspart Moderate Resistance 300 Units/3 Ml Pen.Injctr SC 10/13/24 16:29 Not Given
AC SALIMA
Protocol
Ondansetron HCl 4 mg 09/16/24 15:15
Ondansetron 4 Mg/2 Ml Vial IV 10/14/24 15:14
Q6HPRN PRN
NAUSEA/VOMITING
Polyethylene Glycol 17 grams 09/16/24 09:15 09/17/24 07:31
Polyethylene Glycol Powder 17 Grams Packet PO 10/14/24 09:14 17 grams
DAILY SALIMA Administration
Sodium Chloride 0 flush 09/15/24 23:00
Sodium Chloride 0.9% (Flush) Syringe IV 10/13/24 22:59
PER PROTOCOL SALIMA
Sterile Water 10 ml 09/16/24 00:00 09/16/24 23:55
Sterile Water For Injection 10 Ml Vial IV 10/14/24 00:00 10 ml
Q24H SALIMA Administration
Trazodone HCl 200 mg 09/15/24 22:00 09/16/24 21:26
Trazodone 100 Mg Tablet PO 10/13/24 21:59 200 mg
HS SALIMA Administration
Review of Systems
-
12 point review of systems fails to elicit additional complaints other than those reviewed in HPI
Physical Exam
-
General: Conversant, Appears Chronically Ill and Cachectic
HEENT: Anicteric and Moist mucous membranes
Respiratory: Clear
Cardiac: S1/S2, Regular Rhythm
GI: Soft, Non Tender
Genitourinary: Leon and Continuous Bladder Irrigation
Musculoskeletal: No Clubbing, No Cyanosis and Chronic venous stasis changes right lower extremity
Skin: Warm, Dry and Ulcers Non-healing right lower extremity wound with large amount of slough, but no surrounding erythema
Neuro: Awake, Alert, Oriented and Nonfocal/grossly intact
Psych: Calm
Labs
Lab Results
WBC 17.8 10^3/uL (4.8-10.8) H 09/17/24 06:29
RBC 2.56 10^6/uL (4.70-6.10) L 09/17/24 06:29
Hgb 7.5 g/dL (13.0-18.0) L 09/17/24 09:02
Hct 23.2 % (39.0-52.0) L 09/17/24 09:02
MCV 84.0 fL (80.0-94.0) 09/17/24 06:29
MCH 26.6 pg (27.0-31.0) L 09/17/24 06:29
MCHC 31.6 g/dL (33.0-37.0) L 09/17/24 06:29
RDW 14.7 % (11.5-14.5) H 09/17/24 06:29
Plt Count 294 10^3/uL (130-400) 09/17/24 06:29
MPV 8.5 fL (7.4-10.4) 09/17/24 06:29
Abs Immat Gran (auto) 0.0 10^3/uL (0-0.05) 09/15/24 11:37
Absolute Neuts (auto) 9.2 10^3/uL (1.4-6.5) H 09/15/24 11:37
Absolute Lymphs (auto) 0.3 10^3/uL (1.2-3.4) L 09/15/24 11:37
Absolute Monos (auto) 0.6 10^3/uL (0.1-0.6) 09/15/24 11:37
Absolute Eos (auto) 0.0 10^3/uL (0-0.7) 09/15/24 11:37
Absolute Basos (auto) 0.0 10^3/uL (0-0.2) 09/15/24 11:37
Immature Gran % 0.2 % (0-0.5) 09/15/24 11:37
Neutrophils % 89.9 % (42.2-75.2) H 09/15/24 11:37
Lymphocytes % 3.2 % (20.5-51.1) L 09/15/24 11:37
Monocytes % 6.2 % (1.7-9.3) 09/15/24 11:37
Eosinophils % 0.1 % (0-6) 09/15/24 11:37
Basophils % 0.4 % (0-2) 09/15/24 11:37
Creatinine 1.3 mg/dL (0.7-1.3) 09/17/24 06:29
Vital Signs
Vital Signs
Temp Pulse Resp BP Pulse Ox
98.4 F 104 18 97/57 96
09/17/24 07:00 09/17/24 07:00 09/17/24 07:00 09/17/24 07:00 09/17/24 07:00
--- NOTE | 2024-09-17 12:27 | W.PN.HOSP.TC ---
Today's Communication/Plan
-
Monitor vital signs see plan
Transfuse 1 unit blood today, recheck hemoglobin later today
Plan for or tomorrow by urology
Continue CBI
Hold Xarelto
Hematology evaluation
Replete potassium
Switch antibiotics to Zosyn
Assessment / Plan
Assessment / Plan
General: Conversant, Appears Chronically Ill and Other (Cachectic )
HEENT: Anicteric and Moist mucous membranes
Respiratory: Clear and Non Labored Respirations
Cardiac: S1/S2, Regular Rhythm and Tachycardia (Slightly)
GI: Soft, Non Tender and Other (Right groin hernia reduced by ED)
Genito-urinary: Leon and Continuous Bladder Irrigation
Musculoskeletal: (Chronic venous stasis changes right lower extremity)
Skin: Warm, Dry and Ulcers (Non-healing right lower extremity wound with large amount of slough, but no surrounding eyrthema)
Neuro: Awake, Alert, Oriented and Nonfocal/grossly intact
Psych: Calm
Gross Hematuria with bilateral hydro and ureteral nephrosis
Suspect hematuria likely exacerbated by Xarelto and aspirin
-Urology following, plan for or Saturday for cystoscopy, clot evacuation
-Continue CBI
-Hold aspirin and Xarelto
CT scan with urinary bladder wall is thickened and enhancing with likely debris and gas in the urinary bladder. There is mild bilateral hydroureteronephrosis with bilateral urothelial enhancement. Findings are overall are suspicious for urinary
tract infection although intravesicular blood products could appear similar. Urinary bladder malignancy is possible.
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
Severe colonic stool burden
2.6 cm partially calcified gallstone
Concern for sepsis likely secondary to UTI, blood culture pending. Was never drawn on admission
RLE DVT
-Xarelto on hold due hematuria. Discussed with urology, suspect will need to be off anticoagulation for a while. Consulted hematology for evaluation. Likely will need IVC filter
-Recheck Ultrasound nonocclusive thrombus within the right common femoral, femoral and popliteal veins, overall similar in appearance to prior.
Suspect UTI
Urine culture with Enterobacter, switch antibiotics to Zosyn
Monitor
Suspect acute blood loss anemia 2/2 hematuria
monitor
Hemoglobin 6.812/18 morning, repeat 7.5. Given ongoing bleeding will transfuse 1 unit PRBC
Diabetes Mellitus, uncontrolled
-HgbA1c 11
will ask patient if he will be ok with going home eventually on insulin
-Hold outpatient Po meds for now
-Started low dos Lantus; mealtime likely when eating regular diet
-Monitor sugars and continue coverage insulin
Hypokalemia
Replete
N/V likely 2/2 constipation
laxatives
clears for now
Weight Loss, possibly related to malignancy vs uncontrolled DM vs Mounjaro
-Consult Dietary
-Discontinue Mounjaro
- CT scan noted above
denies any blood in stool
will need evaluation with hem/onc outpatient given blood clots and this new weight loss
possible ringworm LLE
start antifungals
RLE Venous Ulcer
Wound Care following
Sacrum stage 1 PI
Hyperlipidemia
-Continue atorvastatin
Severe protein calorie malnutrition of chronic illness
?Bipolar Disorder?
-Patient unable to tells my why is on Geodon and Cogentin
-Attempt to obtain records from PCP to clarify history
Right Inguinal Hernia -Reduced in ED
-Follow-up with surgery as outpatient
DVT proph: SCDs
Code Status: Full Code
Called sister 09/16, left voicemail
I spent a total of 52 minutes with the patient or on the floor. More than 50% of this time involved counseling and coordination of care.
Anticipated Discharge: > 48 hours
Subjective/Interval History
-
Date of Service: September 17, 2024
Denies pain
Objective Data
-
Labs:
Laboratory Results
09/17/24 09/17/24
06:29 09:02
WBC 17.8 H
Hgb 6.8 L* D 7.5 L
Hct 21.5 L 23.2 L
Plt Count 294
Sodium 140
Potassium 3.4 L
Chloride 107
Carbon Dioxide 25
BUN 58 H
Creatinine 1.3
Glucose 156 H
Calcium 8.4
Total Bilirubin 0.2
AST 24
ALT 21
Alkaline Phosphatase 103
Vital Signs:
Vital Signs
Temp Pulse Resp BP Pulse Ox
98.4 F 104 18 97/57 96
09/17/24 07:00 09/17/24 07:00 09/17/24 07:00 09/17/24 07:00 09/17/24 07:00
I&O
09/16/24 09/17/24 09/18/24
06:59 06:59 06:59
Intake Total 1740 / 1740
Output Total 1550 / 1550 5850 / 5850
Balance -1550 / -1550 -4110 / -4110
[2024-09-17] MEDS: ZOSYN 50 IV ×2 (13:47→19:42)
[2024-09-17 16:50] LABS: Glucose - Point of Care 230 mg/dl (70-99)
[2024-09-17] MEDS: NOVOLOG FLEXPEN-MODERATE RESISTANCE 3 UNITS SC (17:18)
[2024-09-17 21:18] LABS: Glucose - Point of Care 269 mg/dl (70-99)
[2024-09-17] MEDS: LANTUS 0.1 UNITS SC (22:24)
[2024-09-17] MEDS: DESYREL 200 MG PO (22:24)
[2024-09-17 23:09] LABS: Hematocrit 25.1 % (39.0-52.0); Hemoglobin 8.4 g/dL (13.0-18.0)
[2024-09-18] VITALS (13 sets, daily range): BP systolic 105–129; BP diastolic 48–71
[2024-09-18] MEDS: ZOSYN 50 IV ×3 (02:10→14:47)
[2024-09-18] MEDS: NSS IV ×2 (05:18→17:52)
[2024-09-18] MEDS: NSS 1000 IV (05:18)
[2024-09-18 06:53] LABS: Glucose - Point of Care 238 mg/dl (70-99)
[2024-09-18] MEDS: NOVOLOG FLEXPEN-MODERATE RESISTANCE SC ×3 (07:53→13:48)
[2024-09-18] MEDS: COGENTIN 1 MG PO ×2 (07:53→20:00)
[2024-09-18] MEDS: MIRALAX 17 GRAMS PO (07:54)
[2024-09-18] MEDS: COLACE 100 MG PO ×2 (07:54→20:00)
[2024-09-18] MEDS: LIPITOR 20 MG PO (07:54)
[2024-09-18] MEDS: SANTYL OINTMENT 1 APPLIC TOPICAL (07:56)
[2024-09-18 08:28] LABS: INR 1.37; PT 17.1 Sec (11.4-14.6)
[2024-09-18 08:29] LABS: APTT 36.3 Sec (23.4-35.0)
[2024-09-18] MEDS: LOTRIMIN 1% TOPICAL SOLUTION 1 APPLIC TOPICAL ×2 (08:30→20:00)
[2024-09-18 08:40] LABS: Hematocrit 27.2 % (39.0-52.0); Hemoglobin 8.6 g/dL (13.0-18.0); Mean Corp Hgb Conc. 31.6 g/dL (33.0-37.0); Mean Corpuscular Hgb 27.3 pg (27.0-31.0); Mean Corpuscular Volume 86.3 fL (80.0-94.0); Mean Platelet Volume 8.6 fL (7.4-10.4); Platelet Count 257 10^3/uL (130-400); Red Blood Cell Count 3.15 10^6/uL (4.70-6.10); Red Cell Dist. Width 14.9 % (11.5-14.5)
[2024-09-18 08:54] LABS: ALT (SGPT) 21 U/L (0-50); AST (SGOT) 20 U/L (17-59); Albumin 2.4 g/dl (3.5-5.0); Alkaline Phosphatase 117 U/L (38-126); Blood Urea Nitrogen 43 mg/dl (9-20); Calcium 8.4 mg/dl (8.4-10.2); Carbon Dioxide 28 mmol/L (22-30); Chloride 108 mmol/L (98-107); Glucose 98 mg/dl (70-99); Sodium 142 mmol/L (135-145); Total Bilirubin 0.2 mg/dl (0.2-1.3); Total Protein 5.4 g/dl (6.3-8.2); eGFR > 60.00
[2024-09-18] MEDS: KCL 270 MEQ IV (09:59)
[2024-09-18 10:02] LABS: % Basophils 0.2 % (0-2); % Eosinophils 0.1 % (0-6); % Immature Granulocytes 0.5 % (0-0.5); % Lymphocytes 2.6 % (20.5-51.1); % Monocytes 3.9 % (1.7-9.3); % Neutrophils 92.7 % (42.2-75.2); Absolute Immature Granulocytes 0.1 10^3/uL (0-0.05); Absolute Lymphocytes 0.3 10^3/uL (1.2-3.4); Absolute Monocytes 0.5 10^3/uL (0.1-0.6); Nucleated Red Blood Cells % 0 % (-)
--- NOTE | 2024-09-18 11:45 | W.IMMPOSTOP ---
Surgical Immed Post Op Note
-
Primary Surgeon: Jeb
Pre-op Diagnosis: Gross Hematuria, Bilateral Hydroureteronephrosis, Meatal Stenosis
Post-op Diagnosis: same
Procedure Performed: Cysto, clot-evacuation
Anesthesia Type: gen
Specimen / Cultures: none
Estimated Blood Loss: negligible
Complications: no
Operative Findings and Interpretation:
Severe meatal stenosis was etiology of bladder distension, resulting in gross hematuria and bilateral hydroureteronephrosis. Dilation of meatal stenosis to 24 Fr is sufficient remedy in near-term, though recurrence is possible in intermediate and
log terms.
--- NOTE | 2024-09-18 11:45 | W.SUR.PREOP ---
Pre-Operative Surgical Note
-
I have examined this patient prior to the performance of the scheduled procedure.
[2024-09-18 12:01] LABS: Glucose - Point of Care 174 mg/dl (70-99)
--- NOTE | 2024-09-18 13:19 | W.PN.HOSP.TC ---
Today's Communication/Plan
-
Monitor vital signs see plan
OR today by urology
Already has an IVC filter, no further management needed
Continue to hold Xarelto
Hematology following
ID evaluation for bacteremia
Assessment / Plan
Assessment / Plan
General: Conversant, Appears Chronically Ill and Other (Cachectic )
HEENT: Anicteric and Moist mucous membranes
Respiratory: Clear and Non Labored Respirations
Cardiac: S1/S2, Regular Rhythm and Tachycardia (Slightly)
GI: Soft, Non Tender and Other (Right groin hernia reduced by ED)
Genito-urinary: Leon and Continuous Bladder Irrigation
Musculoskeletal: (Chronic venous stasis changes right lower extremity)
Skin: Warm, Dry and Ulcers (Non-healing right lower extremity wound with large amount of slough, but no surrounding eyrthema)
Neuro: Awake, Alert, Oriented and Nonfocal/grossly intact
Psych: Calm
Gross Hematuria with bilateral hydro and ureteral nephrosis
Suspect hematuria likely exacerbated by Xarelto and aspirin
-Urology following, plan for or Saturday for cystoscopy, clot evacuation
-Continue CBI
-Hold aspirin and Xarelto
CT scan with urinary bladder wall is thickened and enhancing with likely debris and gas in the urinary bladder. There is mild bilateral hydroureteronephrosis with bilateral urothelial enhancement. Findings are overall are suspicious for urinary
tract infection although intravesicular blood products could appear similar. Urinary bladder malignancy is possible.
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
Severe colonic stool burden
2.6 cm partially calcified gallstone
Sepsis with Enterobacter bacteremia secondary to UTI
blood culture also with Enterobacter. Was never drawn on admission
Check new sets of blood culture
Continue antibiotics
ID evaluation
RLE DVT
-Xarelto on hold due hematuria. Discussed with urology, suspect will need to be off anticoagulation for a while. Hematology following. Discussed with RN and it appears that patient already has a filter. Patient does not remember when he had IVC
filter. No need for further management.
-Recheck Ultrasound nonocclusive thrombus within the right common femoral, femoral and popliteal veins, overall similar in appearance to prior.
Suspect acute blood loss anemia 2/2 hematuria
monitor
Hemoglobin 6.812/18 morning, repeat 7.5. Given ongoing bleeding will transfuse 1 unit PRBC
Diabetes Mellitus, uncontrolled
-HgbA1c 11
will ask patient if he will be ok with going home eventually on insulin
-Hold outpatient Po meds for now
-Started low dos Lantus; mealtime likely when eating regular diet
-Monitor sugars and continue coverage insulin
Hypokalemia
Replete
N/V likely 2/2 constipation
Now resolved
Weight Loss, possibly related to malignancy vs uncontrolled DM vs Mounjaro
-Consult Dietary
-Discontinue Mounjaro
- CT scan noted above
denies any blood in stool
will need evaluation with hem/onc outpatient given blood clots and this new weight loss
possible ringworm LLE
start antifungals
RLE Venous Ulcer
Wound Care following
Sacrum stage 1 PI
Hyperlipidemia
-Continue atorvastatin
Severe protein calorie malnutrition of chronic illness
?Bipolar Disorder?
-Patient unable to tells my why is on Geodon and Cogentin
-Attempt to obtain records from PCP to clarify history
Right Inguinal Hernia -Reduced in ED
-Follow-up with surgery as outpatient
DVT proph: SCDs
Code Status: Full Code
Called sister 09/16, left voicemail
I spent a total of 51 minutes with the patient or on the floor. More than 50% of this time involved counseling and coordination of care.
Anticipated Discharge: > 48 hours
Subjective/Interval History
-
Date of Service: September 18, 2024
Denies pain
Objective Data
-
Labs:
Laboratory Results
09/18/24
07:25
WBC 13.0 H
Hgb 8.6 L
Hct 27.2 L
Plt Count 257
PT 17.1 H
INR 1.37
APTT 36.3 H
Sodium 142
Potassium 3.0 L
Chloride 108 H
Carbon Dioxide 28
BUN 43 H
Creatinine 1.2
Glucose 98
Calcium 8.4
Total Bilirubin 0.2
AST 20
ALT 21
Alkaline Phosphatase 117
Vital Signs:
Vital Signs
Temp Pulse Resp BP Pulse Ox
98.4 F 65 18 106/58 99
09/18/24 12:40 09/18/24 12:45 09/18/24 12:45 09/18/24 12:45 09/18/24 12:45
I&O
09/17/24 09/18/24 09/19/24
06:59 06:59 06:59
Intake Total 1740 / 1740 3700 / 3700 100 / 100
Output Total 5850 / 5850 4300 / 4300
Balance -4110 / -4110 -600 / -600 100 / 100
[2024-09-18 14:24] LABS: Glucose - Point of Care 86 mg/dl (70-99)
--- NOTE | 2024-09-18 15:37 | CM ---
Chart reviewed. Plan of care ongoing
Per chart, OR today
Hematology following
ID to evaluate
Plan: CM will cont following for d/c planning
--- NOTE | 2024-09-18 15:44 | CON.ID ---
Consultation
-
Date/Time Consultation Requested: 09/18/24 13:16
Date/Time Consultation Performed: 09/18/24 15:44
Requesting Provider: Dr Russ
Performing Provider: Dr Villa
Reason for Consultation: bacteremia
Chief Complaint / Past History
Chief Complaint
hematuria
History of Present Illness
Mr Gaytan is a 69 year old male with history of DM2 who presented here on 09/15 for about 1 week of hematuria, some intermittent obstruction.
Since arrival here has been afebrile, bp stable, Seen by urology and found to have sclerotic glans and stenotic meatus, s/p filiform pass then ramírez placement with dark bloody urine, wbc initially 17.8 now 13, hgb 8.6, plt 257, L shift was noted, cr
1.2, t bili 0.2, ast 20, alt 21, alk phos 117,
taken to the OR today 09/18 and underwent cystoscopy finding 'Severe meatal stenosis was etiology of bladder distension, resulting in gross hematuria and bilateral hydroureteronephrosis. Dilation of meatal stenosis to 24 Fr' surgeon comments that
there is a risk of relapse
Past History
Additional Past Medical History:
Diabetes Mellitus, Type II
Essential Hypertension
Hyperlipidemia
Right Lower Ext DVT - May 2024
?Bipolar Disorder?
Additional Past Surgical History:
Right Hand Surgery
Allergy History:
No Known Allergies Allergy (Verified 09/15/24 09:26)
Medications Reviewed: Yes
Social History
Tobacco: Former Smoker
Alcohol: None
Family History
Family History: Not Pertinent
Review of Systems
Review of Systems
General: Negative Fever or Chills
All systems: All other systems were reviewed and were negative
Vital Signs
Temp Pulse Resp BP Pulse Ox
98.4 F 65 18 106/58 99
09/18/24 12:40 09/18/24 12:45 09/18/24 12:45 09/18/24 12:45 09/18/24 12:45
Physical Exam
Physical Exam
Constitutional: No Acute Distress and Chronically Ill
Cardiovascular: Regular Rate and S1/S2; Negative Murmur or Rub
Pulmonary: Clear and Symmetric; Negative Wheezes, Rales or Rhonchi
Gastrointestinal: Soft, Non Tender, Non Distended and Normal Bowel Sounds
Skin: Warm and Dry; Negative Rash or Jaundice
Lab / Diagnostic Study Results
09/18/24 07:25
09/18/24 07:25
Abs Immat Gran (auto) 0.1 10^3/uL (0-0.05) H 09/18/24 07:25
Absolute Neuts (auto) 12.0 10^3/uL (1.4-6.5) H 09/18/24 07:25
Absolute Lymphs (auto) 0.3 10^3/uL (1.2-3.4) L 09/18/24 07:25
Absolute Monos (auto) 0.5 10^3/uL (0.1-0.6) 09/18/24 07:25
Absolute Basos (auto) 0.0 10^3/uL (0-0.2) 09/18/24 07:25
Total Counted 100 09/17/24 06:29
Immature Gran % 0.5 % (0-0.5) 09/18/24 07:25
Neutrophils % 92.7 % (42.2-75.2) H 09/18/24 07:25
Lymphocytes % 2.6 % (20.5-51.1) L 09/18/24 07:25
Monocytes % 3.9 % (1.7-9.3) 09/18/24 07:25
Eosinophils % 0.1 % (0-6) 09/18/24 07:25
Basophils % 0.2 % (0-2) 09/18/24 07:25
Abs Neuts (Manual) 16.3 10^3/uL (1.4-6.5) H 09/17/24 06:29
Segmented Neutrophils 87 % (42-75) H 09/17/24 06:29
Band Neutrophils 5 % (0-3) H 09/17/24 06:29
Lymphocytes (Manual) 2 % (20-51) L 09/17/24 06:29
PT 17.1 Sec (11.4-14.6) H 09/18/24 07:25
INR 1.37 09/18/24 07:25
Ur Squamous Epith Cells 0-2 /LPF (Few) 09/15/24 11:37
a1c 11
Microbiology Results
Micro:
09/18/24 14:33 Blood Culture - Pending
Blood/Venous
09/18/24 13:27 Blood Culture - Pending
Blood/Venous
09/16/24 12:54 Blood Culture - Preliminary
Blood/Venous Enterobacter species
Gram Stain - Preliminary
09/15/24 11:37 Urine Culture - Final
Urine Enterobacter cloacae
Enterobacter cloacae#2
09/16/24 00:35 MRSA Screen - Final
Nose No Methicillin Resistant Staphylococcus aureus isolated.
Urine Culture Final 09/17/24-1146
CC: Greater than 100,000 CFU/ML
Enterobacter cloacae Strain 1
CC: 100,000 CFU/ML
Enterobacter cloacae Strain 2
Organism 1 Enterobacter cloacae
Organism 2 Enterobacter cloacae#2
E.CLOACAE E.CLOACAE#2
M.I.C. RX M.I.C. RX
--------- --- --------- ---
Amoxicillin/Potas. Clavulanate >16/8 R >16/8 R
Ampicillin >16 R >16 R
Ampicillin/Sulbactam >16/8 R >16/8 R
Aztreonam <=4 S 16 R
Cefazolin >16 R >16 R
Cefepime <=2 S <=2 S
Ceftazidime 4 S 16 R
Ceftriaxone >2 R >2 R
Ertapenem <=0.5 S <=0.5 S
Ciprofloxacin <=0.25 S <=0.25 S
Gentamicin <=2 S <=2 S
Meropenem <=1 S <=1 S
Nitrofurantoin-Urine Only <=32 S <=32 S
Piperacillin/Tazobactam <=8 S 16 S
Tetracycline <=4 S <=4 S
Tobramycin <=2 S <=2 S
Trimethoprim/Sulfamethoxazole <=2/38 S <=2/38 S
Assessment / Plan
Enterobacter bacteremia
Enterobacter UTI
Stenotic meatus
Uncontrolled DM2
- repeat blood cultures x2 in progress
- source is urine
- start ciprofloxacin plan 2 week course 09/17-09/30
- reassess qtc in the am
- follow up with urology
[2024-09-18 16:35] LABS: Glucose - Point of Care 201 mg/dl (70-99)
[2024-09-18] MEDS: NOVOLOG FLEXPEN-MODERATE RESISTANCE 3 UNITS SC (17:35)
[2024-09-18] MEDS: CIPRO 500 MG PO (20:00)
[2024-09-18 21:32] LABS: Glucose - Point of Care 297 mg/dl (70-99)
[2024-09-18] MEDS: LANTUS 0.1 UNITS SC (21:52)
[2024-09-18] MEDS: DESYREL 200 MG PO (21:52)
--- NOTE | 2024-09-19 03:00 | PTCARENOTE ---
pt bladder scan for 945ml. pt straight cath for 1000ml of yellow clear urine. pt later saturated of urine.
[2024-09-19 03:49] VITALS: BP 120/70
[2024-09-19 05:55] VITALS: BMI 17.2
[2024-09-19 07:06] VITALS: BP 115/60
[2024-09-19 07:07] LABS: % Basophils 0.1 % (0-2); % Eosinophils 0.1 % (0-6); % Immature Granulocytes 0.5 % (0-0.5); % Lymphocytes 5.6 % (20.5-51.1); % Monocytes 6.7 % (1.7-9.3); Absolute Immature Granulocytes 0.1 10^3/uL (0-0.05); Absolute Lymphocytes 0.7 10^3/uL (1.2-3.4); Absolute Monocytes 0.8 10^3/uL (0.1-0.6); Absolute Neutrophils 10.5 10^3/uL (1.4-6.5); Hematocrit 24.4 % (39.0-52.0); Mean Corp Hgb Conc. 32.8 g/dL (33.0-37.0); Mean Corpuscular Hgb 27.3 pg (27.0-31.0); Mean Corpuscular Volume 83.3 fL (80.0-94.0); Mean Platelet Volume 8.6 fL (7.4-10.4); Nucleated Red Blood Cells % 0 % (-); Platelet Count 230 10^3/uL (130-400); Red Blood Cell Count 2.93 10^6/uL (4.70-6.10); Red Cell Dist. Width 14.7 % (11.5-14.5); White Blood Cell Count 12.1 10^3/uL (4.8-10.8)
[2024-09-19 07:22] LABS: Glucose - Point of Care 88 mg/dl (70-99)
[2024-09-19] MEDS: NOVOLOG FLEXPEN-MODERATE RESISTANCE SC (07:28)
[2024-09-19 07:31] LABS: ALT (SGPT) 20 U/L (0-50); AST (SGOT) 20 U/L (17-59); Albumin 2.2 g/dl (3.5-5.0); Alkaline Phosphatase 113 U/L (38-126); Blood Urea Nitrogen 42 mg/dl (9-20); Calcium 8.5 mg/dl (8.4-10.2); Carbon Dioxide 26 mmol/L (22-30); Chloride 105 mmol/L (98-107); Estimated Creatinine Clearance 42 ml/min; Glucose 73 mg/dl (70-99); Potassium 3.5 mmol/L (3.5-5.1); Sodium 137 mmol/L (135-145); Total Bilirubin 0.2 mg/dl (0.2-1.3); Total Protein 5.3 g/dl (6.3-8.2); eGFR > 60.00
[2024-09-19] MEDS: MIRALAX 17 GRAMS PO (08:19)
[2024-09-19] MEDS: CIPRO 500 MG PO ×2 (08:20→19:42)
[2024-09-19] MEDS: COGENTIN 1 MG PO ×2 (08:20→19:42)
[2024-09-19] MEDS: SANTYL OINTMENT 1 APPLIC TOPICAL (08:20)
[2024-09-19] MEDS: LIPITOR 20 MG PO (08:20)
[2024-09-19] MEDS: COLACE 100 MG PO ×2 (08:20→19:42)
[2024-09-19] MEDS: LOTRIMIN 1% TOPICAL SOLUTION 1 APPLIC TOPICAL ×2 (08:21→19:42)
[2024-09-19 11:58] VITALS: BP 126/71
[2024-09-19 12:46] LABS: Glucose - Point of Care 183 mg/dl (70-99)
[2024-09-19] MEDS: NOVOLOG FLEXPEN-MODERATE RESISTANCE 1 UNITS SC (13:16)
--- NOTE | 2024-09-19 13:37 | W.PN.HOSP.TC ---
Today's Communication/Plan
-
Monitor vitals
See plan
Continue with psych meds
Bladder scan as needed, cath if necessary
Urology to see today
Follow blood cultures
Continue with antibiotic
Assessment / Plan
Assessment / Plan
General: Conversant, Appears Chronically Ill and Other (Cachectic )
HEENT: Anicteric and Moist mucous membranes
Respiratory: Clear and Non Labored Respirations
Cardiac: S1/S2, Regular Rhythm and Tachycardia (Slightly)
GI: Soft, Non Tender and Other (Right groin hernia reduced by ED)
Genito-urinary: no ramírez
Musculoskeletal: (Chronic venous stasis changes right lower extremity)
Skin: Warm, Dry and Ulcers (Non-healing right lower extremity wound with large amount of slough, but no surrounding eyrthema)
Neuro: Awake, Alert, Oriented and Nonfocal/grossly intact
Psych: Calm
Gross Hematuria with bilateral hydro by meatal stenosis
Suspect hematuria likely exacerbated by Xarelto and aspirin
-Urology following,s/p OR for cystoscopy, clot evacuation
now off ramírez; voiding trial
-restart aspirin; continue to hold xarelto
CT scan with urinary bladder wall is thickened and enhancing with likely debris and gas in the urinary bladder. There is mild bilateral hydroureteronephrosis with bilateral urothelial enhancement. Findings are overall are suspicious for urinary
tract infection although intravesicular blood products could appear similar. Urinary bladder malignancy is possible.
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
Severe colonic stool burden
2.6 cm partially calcified gallstone
Sepsis with Enterobacter bacteremia secondary to UTI
blood culture also with Enterobacter. Was never drawn on admission
new bcx 09/18 pending
Continue antibiotics; now on cipro
ID following
RLE DVT
-Xarelto on hold due hematuria. Discussed with urology, suspect will need to be off anticoagulation for a while. Hematology following. Discussed with IR and it appears that patient already has a filter. Patient does not remember when he had IVC
filter. No need for further management.
-Recheck Ultrasound nonocclusive thrombus within the right common femoral, femoral and popliteal veins, overall similar in appearance to prior.
Suspect acute blood loss anemia 2/2 hematuria
monitor
Hemoglobin 6.812/18 morning, repeat 7.5. Given ongoing bleeding will transfuse 1 unit PRBC. hgb now 8
Diabetes Mellitus, uncontrolled
-HgbA1c 11
does not appear to be a good candidate for insulin; discussed with sister. will try PO meds and if still uncontrolled then family might need to help if goes on insulin
restart jardiance
-Started low dose Lantus; mealtime likely when eating regular diet
-Monitor sugars and continue coverage insulin
Hypokalemia
Replete
N/V likely 2/2 constipation
Now resolved
Weight Loss, possibly related to malignancy vs uncontrolled DM vs Mounjaro
-Consult Dietary
-Discontinue Mounjaro
- CT scan noted above
denies any blood in stool
will need evaluation with hem/onc outpatient given blood clots and this new weight loss
possible ringworm LLE
started antifungals
RLE Venous Ulcer
Wound Care following
Sacrum stage 1 PI
Hyperlipidemia
-Continue atorvastatin
Severe protein calorie malnutrition of chronic illness
?Bipolar Disorder?
-Patient unable to tells my why is on Geodon and Cogentin
-Attempt to obtain records from PCP to clarify history; sister reported she will assist
Right Inguinal Hernia -Reduced in ED
-Follow-up with surgery as outpatient
DVT proph: SCDs, heparin
Code Status: Full Code
Discussed with sister Anila on 09/19
I spent a total of 51 minutes with the patient or on the floor. More than 50% of this time involved counseling and coordination of care.
Anticipated Discharge: 24 - 48 hours
Subjective/Interval History
-
Date of Service: September 19, 2024
denies pain
Objective Data
-
Labs:
Laboratory Results
09/19/24
06:28
WBC 12.1 H
Hgb 8.0 L
Hct 24.4 L
Plt Count 230
Sodium 137
Potassium 3.5
Chloride 105
Carbon Dioxide 26
BUN 42 H
Creatinine 1.2
Glucose 73
Calcium 8.5
Total Bilirubin 0.2
AST 20
ALT 20
Alkaline Phosphatase 113
Vital Signs:
Vital Signs
Temp Pulse Resp BP Pulse Ox
97.4 F 76 16 115/60 98
09/19/24 07:06 09/19/24 07:06 09/19/24 07:06 09/19/24 07:06 09/19/24 07:06
I&O
09/18/24 09/19/24 09/20/24
06:59 06:59 06:59
Intake Total 3700 / 3700 1300 / 1300
Output Total 4300 / 4300 1200 / 1200
Balance -600 / -600 100 / 100
--- NOTE | 2024-09-19 13:39 | W.PN.ID1 ---
Date of Service
Date of Service: September 19, 2024
Today's Communication
- c/w ciprofloxacin plan 2 week course 09/17-09/30
- qtc remains acceptable
- follow up with urology
ID service will no longer actively follow this patient please recall for further questions
Assessment / Plan
Enterobacter bacteremia
Enterobacter UTI
Stenotic meatus
Uncontrolled DM2
- repeat blood cultures x2 in progress no growth to date
- source is urine
- c/w ciprofloxacin plan 2 week course 09/17-09/30
- qtc remains acceptable
- follow up with urology
ID service will no longer actively follow this patient please recall for further questions
Chief Complaint
-: UTI and Bacteremia
Subjective / Review of Systems
afebrile
bp stable
no events overnight
tolerating current therapy
Vital Signs / Physical Exam
Vital Signs
Vital Signs
Temp Pulse Resp BP Pulse Ox
97.4 F 76 16 115/60 98
09/19/24 07:06 09/19/24 07:06 09/19/24 07:06 09/19/24 07:06 09/19/24 07:06
Physical Exam
Constitutional: No Acute Distress and Cachetic
Cardiovascular: Regular Rate and S1/S2; Negative Murmur or Rub
Pulmonary: Clear and Symmetric; Negative Wheezes or Rales
Gastrointestinal: Soft, Non Tender, Non Distended and Normal Bowel Sounds
Skin: Warm and Dry; Negative Rash or Jaundice
Objective Data
Lab Data
Lab Results
09/19/24 06:28
09/19/24 06:28
PT 17.1 Sec (11.4-14.6) H 09/18/24 07:25
INR 1.37 09/18/24 07:25
APTT 36.3 Sec (23.4-35.0) H 09/18/24 07:25
Estimated Creat Clear 42 ml/min 09/19/24 06:28
Total Bilirubin 0.2 mg/dl (0.2-1.3) 09/19/24 06:28
AST 20 U/L (17-59) 09/19/24 06:28
ALT 20 U/L (0-50) 09/19/24 06:28
Alkaline Phosphatase 113 U/L (38-126) 09/19/24 06:28
Most recent labs reviewed.
Micro Results:
09/18/24 13:27 Blood Culture - Preliminary
Blood/Venous No Growth in 24 hours- Final report to follow
09/16/24 12:54 Blood Culture - Preliminary
Blood/Venous Enterobacter species
Gram Stain - Preliminary
09/18/24 14:33 Blood Culture - Pending
Blood/Venous
09/15/24 11:37 Urine Culture - Final
Urine Enterobacter cloacae
Enterobacter cloacae#2
09/16/24 00:35 MRSA Screen - Final
Nose No Methicillin Resistant Staphylococcus aureus isolated.
[2024-09-19 15:05] VITALS: BP 127/69
[2024-09-19] MEDS: FLOMAX 0.4 MG PO (16:37)
[2024-09-19] MEDS: HEPARIN 5000 UNITS SC ×2 (16:37→22:29)
[2024-09-19 16:41] LABS: Glucose - Point of Care 247 mg/dl (70-99)
[2024-09-19] MEDS: NOVOLOG FLEXPEN-MODERATE RESISTANCE 3 UNITS SC (16:43)
--- NOTE | 2024-09-19 18:01 | PTCARENOTE ---
Pt bladder scanned for 800 mls at 1400. At 1430, went to straight cath pt, he was incontinent and straight cathed for 515 mls. At 1800, bladder scanned pt again and he was at 650 mls. Urology notified, said to hold off on another straight cath as
long as pt is not uncomfortable. will continue to monitor.
[2024-09-19 21:17] LABS: Glucose - Point of Care 316 mg/dl (70-99)
[2024-09-19] MEDS: TYLENOL 650 MG PO (21:39)
[2024-09-19] MEDS: LANTUS 0.1 UNITS SC (21:39)
[2024-09-19] MEDS: DESYREL 200 MG PO (21:39)
[2024-09-19 23:26] VITALS: BP 126/73
--- NOTE | 2024-09-20 01:42 | PTCARENOTE ---
Pt incontinent of a large amount of urine; however abd round, firm, distended. bladder scan =1400ml. voided 350ml yellow urine. pt straight cath for 1050ml.
[2024-09-20 05:56] VITALS: BMI 16.7
[2024-09-20 07:00] VITALS: BP 114/71
[2024-09-20 07:42] LABS: % Basophils 0.2 % (0-2); % Eosinophils 0.4 % (0-6); % Immature Granulocytes 0.5 % (0-0.5); % Lymphocytes 7.1 % (20.5-51.1); % Monocytes 6.8 % (1.7-9.3); Absolute Immature Granulocytes 0.1 10^3/uL (0-0.05); Absolute Lymphocytes 0.7 10^3/uL (1.2-3.4); Absolute Monocytes 0.6 10^3/uL (0.1-0.6); Absolute Neutrophils 7.8 10^3/uL (1.4-6.5); Hematocrit 26.9 % (39.0-52.0); Hemoglobin 8.3 g/dL (13.0-18.0); Mean Corp Hgb Conc. 30.9 g/dL (33.0-37.0); Mean Corpuscular Hgb 26.5 pg (27.0-31.0); Mean Corpuscular Volume 85.9 fL (80.0-94.0); Mean Platelet Volume 8.5 fL (7.4-10.4); Nucleated Red Blood Cells % 0 % (-); Platelet Count 227 10^3/uL (130-400); Red Blood Cell Count 3.13 10^6/uL (4.70-6.10); Red Cell Dist. Width 14.7 % (11.5-14.5); White Blood Cell Count 9.2 10^3/uL (4.8-10.8)
[2024-09-20 08:00] LABS: ALT (SGPT) 19 U/L (0-50); AST (SGOT) 18 U/L (17-59); Albumin 2.3 g/dl (3.5-5.0); Alkaline Phosphatase 108 U/L (38-126); Blood Urea Nitrogen 41 mg/dl (9-20); Calcium 8.6 mg/dl (8.4-10.2); Carbon Dioxide 27 mmol/L (22-30); Chloride 107 mmol/L (98-107); Estimated Creatinine Clearance 40 ml/min; Glucose 131 mg/dl (70-99); Potassium 3.2 mmol/L (3.5-5.1); Sodium 138 mmol/L (135-145); Total Bilirubin 0.3 mg/dl (0.2-1.3); Total Protein 5.2 g/dl (6.3-8.2); eGFR > 60.00
[2024-09-20 08:03] LABS: Glucose - Point of Care 144 mg/dl (70-99)
[2024-09-20] MEDS: NOVOLOG FLEXPEN-MODERATE RESISTANCE SC (08:19)
[2024-09-20] MEDS: MIRALAX 17 GRAMS PO (09:02)
[2024-09-20] MEDS: FLOMAX 0.4 MG PO (09:03)
[2024-09-20] MEDS: COGENTIN 1 MG PO ×2 (09:03→20:53)
[2024-09-20] MEDS: SANTYL OINTMENT 1 APPLIC TOPICAL (09:03)
[2024-09-20] MEDS: KCL 40 MEQ PO (09:03)
[2024-09-20] MEDS: ASPIR LOW (ENTERIC COATED) 81 MG PO (09:03)
[2024-09-20] MEDS: CIPRO 500 MG PO ×2 (09:03→20:53)
[2024-09-20] MEDS: FARXIGA 10 MG PO (09:03)
[2024-09-20] MEDS: LOTRIMIN 1% TOPICAL SOLUTION 1 APPLIC TOPICAL ×2 (09:04→20:59)
[2024-09-20] MEDS: HEPARIN 5000 UNITS SC ×3 (09:04→23:17)
[2024-09-20] MEDS: COLACE 100 MG PO ×2 (09:04→20:53)
[2024-09-20] MEDS: LIPITOR 20 MG PO (09:04)
[2024-09-20 11:40] VITALS: BP 112/64; PULSE 92; O2SAT 99
--- NOTE | 2024-09-20 11:47 | W.PN.URO.CBU ---
Today's Communication / Plan
-
Patient was begun on tamsulosin 09/19/24 for urine retention but continues to be bladder scanned for > 700 ml post-void
Will place Leon today
Assessment / Plan
-
Gross hematuria: resolved
UTI
Urethral meatal stenosis
bilateral hydroureteronephrosis
Anemia
Urine retention
Diagnosis
-
Date of Service: September 20, 2024
-
Patient Diagnosis:
Gross hematuria
UTI
Urethral meatal stenosis
bilateral hydroureteronephrosis
Anemia
Urine retention
Subjective
-
Fatigued
Weak
Objective
-
Vital Signs
Temp Pulse Resp BP Pulse Ox
97.8 F 95 18 114/71 97
09/20/24 07:00 09/20/24 07:00 09/20/24 07:00 09/20/24 07:00 09/20/24 07:00
Intake and Output
09/19/24 09/20/24 09/21/24
06:59 06:59 06:59
Intake Total 1300 / 1300 680 / 680
Output Total 1200 / 1200 1565 / 1565
Balance 100 / 100 -885 / -885
Intake:
Oral fluids 1200 / 1200 680 / 680
IV piggybacks 100 / 100
Output:
Straight cath output 1000 / 1000 1565 / 1565
True Urine Output from CBI 200 / 200
Other:
How many times incontinent 1
MODERATE amount urine
How many times incontinent 1 1
SATURATED amount urine
Laboratory Results
09/20/24 06:48
09/20/24 06:48
Review of Systems
-
: Difficulty Voiding
Physical Exam
-
General - frail, no acute distress
Counseling
-
Keep Leon until patient is better conditioned
--- NOTE | 2024-09-20 12:06 | W.PN.HOSP.TC ---
Today's Communication/Plan
-
Monitor vital signs
see plan
Continue antibiotic
Repeat blood culture
Follow cultures
Still retaining, Ramírez catheter again per urology
Continue with Flomax
Monitor hemoglobin
Assessment / Plan
Assessment / Plan
General: Conversant, Appears Chronically Ill and Other (Cachectic )
HEENT: Anicteric and Moist mucous membranes
Respiratory: Clear and Non Labored Respirations
Cardiac: S1/S2, Regular Rhythm
GI: Soft, Non Tender
Genito-urinary: no ramírez
Musculoskeletal: (Chronic venous stasis changes right lower extremity)
Skin: Ulcers (Non-healing right lower extremity wound with large amount of slough, but no surrounding eyrthema)
Neuro: Awake, Alert, Oriented and Nonfocal/grossly intact
Psych: Calm
Gross Hematuria with bilateral hydro 2/2 uretheral meatal stenosis
Suspect hematuria likely exacerbated by Xarelto and aspirin
-Urology following,s/p OR for cystoscopy, clot evacuation
now off ramírez; failed voiding trial. Urology recommended Ramírez again 09/20. Monitor. Continue
-restarted aspirin; continue to hold xarelto, defer to urology and hematology about restarting. Patient however does have a filter
CT scan with urinary bladder wall is thickened and enhancing with likely debris and gas in the urinary bladder. There is mild bilateral hydroureteronephrosis with bilateral urothelial enhancement. Findings are overall are suspicious for urinary
tract infection although intravesicular blood products could appear similar. Urinary bladder malignancy is possible.
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
Severe colonic stool burden
2.6 cm partially calcified gallstone
Sepsis with Enterobacter bacteremia secondary to UTI
blood culture also with Enterobacter. Was never drawn on admission
new bcx 09/18 1 bottle neg so far but other growing gram neg; repeat bcx 09/20. check echo
Continue antibiotics; now on cipro; plan 2 week course 09/17-09/30 per ID
ID
RLE DVT
-Xarelto on hold due hematuria. Discussed with urology, suspect will need to be off anticoagulation for a while. Hematology following. Discussed with IR and it appears that patient already has a filter. Patient does not remember when he had IVC
filter. No need for further management per IR
-Recheck Ultrasound nonocclusive thrombus within the right common femoral, femoral and popliteal veins, overall similar in appearance to prior.
Suspect acute blood loss anemia 2/2 hematuria
monitor
Hemoglobin 6.8 09/16 morning, repeat 7.5. Given ongoing bleeding will transfuse 1 unit PRBC. hgb now 8.3
Diabetes Mellitus, uncontrolled
-HgbA1c 11
does not appear to be a good candidate for insulin; discussed with sister. will try PO meds and if still uncontrolled then family might need to help if goes on insulin
restart jardiance
-Started low dose Lantus, sliding scale
-Monitor sugars and continue coverage insulin
Hypokalemia
Replete
N/V likely 2/2 constipation
Now resolved
Weight Loss, possibly related to malignancy vs uncontrolled DM vs Mounjaro
-Discontinue Mounjaro
- CT scan noted above
denies any blood in stool
will need evaluation with hem/onc outpatient given blood clots and this new weight loss
possible ringworm LLE
started antifungals
RLE Venous Ulcer
Wound Care following
Sacrum stage 1 PI
Hyperlipidemia
-Continue atorvastatin
Severe protein calorie malnutrition of chronic illness
?Bipolar Disorder?
-Patient unable to tells my why is on Geodon and Cogentin
-Attempt to obtain records from PCP to clarify history; sister reported she will assist
Right Inguinal Hernia -Reduced in ED
-Follow-up with surgery as outpatient
DVT proph: SCDs, heparin
Code Status: Full Code
Discussed with sister Anila on 09/19
I spent a total of 52 minutes with the patient or on the floor. More than 50% of this time involved counseling and coordination of care.
Anticipated Discharge: 24 - 48 hours
Subjective/Interval History
-
Date of Service: September 20, 2024
Still retaining
Objective Data
-
Labs:
Laboratory Results
09/20/24
06:48
WBC 9.2
Hgb 8.3 L
Hct 26.9 L
Plt Count 227
Sodium 138
Potassium 3.2 L
Chloride 107
Carbon Dioxide 27
BUN 41 H
Creatinine 1.2
Glucose 131 H
Calcium 8.6
Total Bilirubin 0.3
AST 18
ALT 19
Alkaline Phosphatase 108
Vital Signs:
Vital Signs
Temp Pulse Resp BP Pulse Ox
97.8 F 95 18 114/71 97
09/20/24 07:00 09/20/24 07:00 09/20/24 07:00 09/20/24 07:00 09/20/24 07:00
I&O
09/19/24 09/20/24 09/21/24
06:59 06:59 06:59
Intake Total 1300 / 1300 680 / 680
Output Total 1200 / 1200 1565 / 1565
Balance 100 / 100 -885 / -885
[2024-09-20 12:14] LABS: Glucose - Point of Care 161 mg/dl (70-99)
[2024-09-20] MEDS: NOVOLOG FLEXPEN-MODERATE RESISTANCE 1 UNITS SC (12:28)
[2024-09-20 14:25] VITALS: BP 112/64; PULSE 94; O2SAT 99
[2024-09-20 15:00] VITALS: BP 117/66
[2024-09-20 17:08] LABS: Glucose - Point of Care 223 mg/dl (70-99)
[2024-09-20] MEDS: NOVOLOG FLEXPEN-MODERATE RESISTANCE 3 UNITS SC (17:52)
[2024-09-20] MEDS: DESYREL 200 MG PO (20:59)
[2024-09-20 21:22] LABS: Glucose - Point of Care 235 mg/dl (70-99)
[2024-09-20] MEDS: LANTUS 0.1 UNITS SC (21:29)
[2024-09-20 23:47] VITALS: BP 116/60
[2024-09-21 05:53] VITALS: BMI 17.0
[2024-09-21 07:00] VITALS: BP 118/57
[2024-09-21 07:12] LABS: Glucose - Point of Care 79 mg/dl (70-99)
[2024-09-21] MEDS: NOVOLOG FLEXPEN-MODERATE RESISTANCE SC ×2 (07:23→11:48)
[2024-09-21] MEDS: CIPRO 500 MG PO ×2 (07:43→19:41)
[2024-09-21] MEDS: COLACE 100 MG PO ×2 (07:43→19:41)
[2024-09-21] MEDS: MIRALAX 17 GRAMS PO (07:43)
[2024-09-21] MEDS: LIPITOR 20 MG PO (07:43)
[2024-09-21] MEDS: SANTYL OINTMENT 1 APPLIC TOPICAL (07:43)
[2024-09-21] MEDS: FLOMAX 0.4 MG PO (07:43)
[2024-09-21] MEDS: ASPIR LOW (ENTERIC COATED) 81 MG PO (07:43)
[2024-09-21] MEDS: HEPARIN 5000 UNITS SC (07:43)
[2024-09-21] MEDS: FARXIGA 10 MG PO (07:43)
[2024-09-21] MEDS: LOTRIMIN 1% TOPICAL SOLUTION 1 APPLIC TOPICAL ×2 (07:44→19:45)
[2024-09-21] MEDS: COGENTIN 1 MG PO ×2 (07:44→19:41)
[2024-09-21 08:01] LABS: % Basophils 0.1 % (0-2); % Eosinophils 0.4 % (0-6); % Immature Granulocytes 0.6 % (0-0.5); % Lymphocytes 9.5 % (20.5-51.1); % Monocytes 7.9 % (1.7-9.3); % Neutrophils 81.5 % (42.2-75.2); Absolute Lymphocytes 0.7 10^3/uL (1.2-3.4); Absolute Monocytes 0.5 10^3/uL (0.1-0.6); Absolute Neutrophils 5.6 10^3/uL (1.4-6.5); Hematocrit 24.7 % (39.0-52.0); Hemoglobin 8.1 g/dL (13.0-18.0); Mean Corp Hgb Conc. 32.8 g/dL (33.0-37.0); Mean Corpuscular Hgb 27.2 pg (27.0-31.0); Mean Corpuscular Volume 82.9 fL (80.0-94.0); Mean Platelet Volume 8.6 fL (7.4-10.4); Nucleated Red Blood Cells % 0 % (-); Platelet Count 232 10^3/uL (130-400); Red Blood Cell Count 2.98 10^6/uL (4.70-6.10); Red Cell Dist. Width 14.7 % (11.5-14.5); White Blood Cell Count 6.8 10^3/uL (4.8-10.8)
[2024-09-21 08:33] LABS: ALT (SGPT) 17 U/L (0-50); AST (SGOT) 18 U/L (17-59); Albumin 2.2 g/dl (3.5-5.0); Alkaline Phosphatase 102 U/L (38-126); Blood Urea Nitrogen 33 mg/dl (9-20); Calcium 8.2 mg/dl (8.4-10.2); Carbon Dioxide 27 mmol/L (22-30); Chloride 106 mmol/L (98-107); Estimated Creatinine Clearance 55 ml/min; Glucose 70 mg/dl (70-99); Potassium 3.6 mmol/L (3.5-5.1); Sodium 136 mmol/L (135-145); Total Bilirubin 0.3 mg/dl (0.2-1.3); Total Protein 5.1 g/dl (6.3-8.2); eGFR > 60.00
--- NOTE | 2024-09-21 08:42 | W.PN.HOSP.TC ---
Today's Communication/Plan
-
see A/P
Assessment / Plan
Assessment / Plan
A/P:
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
hematuria likely exacerbated by Xarelto and aspirin
s/p OR cystoscopy, clot evacuation
restarted aspirin
continue to hold Xarelto, defer to urology and hematology about restarting (see below). Patient does have a filter.
failed voiding trial. Leon replaced 09/20.
# Sepsis POA with Enterobacter bacteremia secondary to complicated UTI
blood culture with Enterobacter. Cont to follow blood culture until clearance
Echo ordered
Continue antibiotic cipro; plan 2 week course 09/17-09/30 per ID
# RLE DVT
Xarelto on hold due hematuria.
Discussed with urology, suspect will need to be off anticoagulation for a while.
Hematology following.
Dr Russ discussed with IR and it appears that patient already has a filter. Patient or family do not remember when IVC filter was placed. No need for further management per IR.
Recheck Ultrasound noted nonocclusive thrombus within the right common femoral, femoral and popliteal veins, overall similar in appearance to prior.
# Suspect acute blood loss anemia 2/2 hematuria
s/p 1 unit PRBC.
Hgb now stable, at 8.1 today
# DM, uncontrolled
HgbA1c 11 %
He was started with insulin Lantus, adjust to 5 units HS
restarted Jardiance
cont sliding scale
# Hypokalemia
Repleted
# N/V likely 2/2 constipation, resolved
# Weight Loss, possibly related to malignancy vs uncontrolled DM vs Mounjaro
Discontinued Mounjaro
d/w sister about age appropriate routine cancer screening, can be done with PCP
# possible ringworm LLE
started antifungals
# RLE Venous Ulcer
Wound Care following
# Sacrum stage 1 PI
# Hyperlipidemia
Continue atorvastatin
# Severe protein calorie malnutrition of chronic illness
# ?Bipolar Disorder?
Patient unable to tells my why is on Geodon and Cogentin
Attempt to obtain records from PCP to clarify history; sister reported she will assist
# Right Inguinal Hernia, Reduced in ED
DVT proph: changed to Lovenox SQ
Code Status: Full Code
Dispo: PT OT recc SNF
Discussed with sister Anila on 09/19
total time spent 51 min
Anticipated Discharge: > 48 hours
Subjective/Interval History
-
Date of Service: September 21, 2024
Objective Data
-
Labs:
Laboratory Results
09/21/24
07:07
WBC 6.8
Hgb 8.1 L
Hct 24.7 L
Plt Count 232
Sodium 136
Potassium 3.6
Chloride 106
Carbon Dioxide 27
BUN 33 H
Creatinine 0.9
Glucose 70
Calcium 8.2 L
Total Bilirubin 0.3
AST 18
ALT 17
Alkaline Phosphatase 102
Vital Signs:
Vital Signs
Temp Pulse Resp BP Pulse Ox
36.7 C 68 18 118/57 98
09/21/24 07:00 09/21/24 07:00 09/21/24 07:00 09/21/24 07:00 09/21/24 07:00
I&O
09/20/24 09/21/24 09/22/24
06:59 06:59 06:59
Intake Total 680 / 680 2760 / 2760
Output Total 1565 / 1565 3200 / 3200
Balance -885 / -885 -440 / -440
Review of Systems
-
All other systems: Reviewed and negative
Physical Exam
-
General: Well Developed, Well Nourished, No Apparent Distress, Comfortable and Conversant; Negative Respiratory Distress
HEENT: Normocephalic, Atraumatic, Nose Appears Normal and Ears Appear Normal; Negative Oxygen
Respiratory: Clear to Auscultation and Non Labored Respirations; Negative Accessory Resp Muscle Use
Cardiac: Regular Rhythm and S1/S2
GI: Soft, Nontender, Nondistended and Normal Bowel Sounds
Genito-urinary: Leon
Skin: Warm and Dry
Neuro: Awake and Alert
Psych: Calm
Data Reviewed
-
CT Scan: Report Reviewed by me
Labs: Labs Reviewed by me
--- NOTE | 2024-09-21 09:29 | W.PN.URO.CBU ---
Today's Communication / Plan
-
Continue tamsulosin in anticipation of a voiding trial when patient is better conditioned
Assessment / Plan
-
Gross hematuria: resolved
UTI
Urethral meatal stenosis
bilateral hydroureteronephrosis
Anemia
Urine retention
Diagnosis
-
Date of Service: September 21, 2024
-
Patient Diagnosis:
Gross hematuria
UTI
Urethral meatal stenosis
bilateral hydroureteronephrosis
Anemia
Urine retention
Subjective
-
Comfortable
Objective
-
Vital Signs
Temp Pulse Resp BP Pulse Ox
98.1 F 68 18 118/57 98
09/21/24 07:00 09/21/24 07:00 09/21/24 07:00 09/21/24 07:00 09/21/24 07:00
Intake and Output
09/20/24 09/21/24 09/22/24
06:59 06:59 06:59
Intake Total 680 / 680 2760 / 2760
Output Total 1565 / 1565 3200 / 3200
Balance -885 / -885 -440 / -440
Intake:
Oral fluids 680 / 680 2760 / 2760
Output:
Urine, Leon 3200 / 3200
Straight cath output 1565 / 1565
Other:
Number of approximated MODERATE 1
amounts of urine
How many times incontinent 1
MODERATE amount urine
How many times incontinent 1
SATURATED amount urine
Laboratory Results
09/21/24 07:07
09/21/24 07:07
Review of Systems
-
Constitutional: Fatigue
Abdomen/GI: No Symptoms
: Difficulty Voiding
Physical Exam
-
General - frail, no acute distress
Abdomen - soft, non-tender
Genitalia - Leon draining clear urine
Counseling
-
Keep Leon
Continue tamsulosin
[2024-09-21] MEDS: KCL 40 MEQ PO (09:37)
--- NOTE | 2024-09-21 10:04 | CM ---
Addendum entered by Dada Mcnamara 09/22/24 13:30:
Additional referral sent to [facility]. Per [facility], unable to accept pt as facility has many COVID positive residents and not accepting new admits at this time.
Attempted call to [facility], left message
[facility]ed call [facility], left message w/ admissions
Updated pt's sister regarding SNF searches and referrals. Family may need to cont to explore and expand SNF options
Addendum entered by Dada Mcnamara 09/22/24 10:42:
Per pt's sister, identified [facility], [facility], and [facility] for SNF
CM sent referrals to identified facilities, awaiting determination
Will send additional SNF list if needed
Original Note:
Chart reviewed for d/c planning. Pt being recommended for SNF.
Per hospitalist, pt possibly clear for d/c in another 2 days
CM spoke w/ pt's sister, Anila, regarding rehab needs. Per Anila, agreeable to rehab but want to ensure rehabs are in network w/ pt's insurance and that rehab is covered. CM stated pt will require an auth through insurance and will be able to
determine which facilities are in network or not.
Anila stated pt lives w/ her sister who resides in [place] and prefers facilities in and near that area.
As requested, CM emailed SNF list to Anila to review. CM will await SNF preferences to begin sending referrals.
Plan: SNF; family to determine facilities. Auth will need to be obtained
CM will cont to follow for d/c planning
[2024-09-21 11:48] LABS: Glucose - Point of Care 149 mg/dl (70-99)
--- NOTE | 2024-09-21 11:54 | W.PN.ONC2 ---
Today's Communication / Plan
-
In the setting of acute DVT 08/28 common femoral vein, has IVC
resume OAC once cleared by urology
hematology will sign off, please reach out with any further questions or concerns.
Impression
Impression
hematuria rule
Right lower extremity DVT
Venous stasis ulcers
Diabetes mellitus with weight loss
sepsis/bacteremia/UTI
Subjective/Objective
Subjective
hematuria resolved
Vital Signs:
Vital Signs
Temp Pulse Resp BP Pulse Ox
98.1 F 68 18 118/57 98
09/21/24 07:00 09/21/24 07:00 09/21/24 07:00 09/21/24 07:00 09/21/24 07:00
Lab Results:
Laboratory Data
WBC 6.8 10^3/uL (4.8-10.8) 09/21/24 07:07
Hgb 8.1 g/dL (13.0-18.0) L 09/21/24 07:07
Plt Count 232 10^3/uL (130-400) 09/21/24 07:07
PT 17.1 Sec (11.4-14.6) H 09/18/24 07:25
INR 1.37 09/18/24 07:25
APTT 36.3 Sec (23.4-35.0) H 09/18/24 07:25
eGFR > 60.00 09/21/24 07:07
Physical Exam
HEENT: Moist Mucous Membranes and Other (cachectic); No Jaundice
Cardiology: Normal Sinus Rhythm
Pulmonary: Clear
GI: Soft
Extremities: Pulses Present
[2024-09-21] MEDS: GEODON 80 MG PO ×2 (12:36→19:41)
[2024-09-21 15:00] VITALS: BP 124/73
[2024-09-21 17:02] LABS: Glucose - Point of Care 272 mg/dl (70-99)
[2024-09-21] MEDS: NOVOLOG FLEXPEN-MODERATE RESISTANCE 5 UNITS SC (17:07)
[2024-09-21] MEDS: LOVENOX 30 MG SC (17:07)
[2024-09-21] MEDS: DESYREL 200 MG PO (19:41)
[2024-09-21 22:17] LABS: Glucose - Point of Care 332 mg/dl (70-99)
[2024-09-21] MEDS: LANTUS 0.05 UNITS SC (22:23)
[2024-09-21 23:33] VITALS: BP 123/63
[2024-09-22 05:58] VITALS: BMI 16.7
--- NOTE | 2024-09-22 06:10 | W.PN.URO.CBU ---
Today's Communication / Plan
-
continue Leon
voiding trial when stronger
Assessment / Plan
-
Gross hematuria: resolved
UTI
Urethral meatal stenosis
bilateral hydroureteronephrosis
Anemia
Urine retention -- persistent
Diagnosis
-
Date of Service: September 22, 2024
-
Patient Diagnosis:
Gross hematuria
UTI
Urethral meatal stenosis
bilateral hydroureteronephrosis
Anemia
Urine retention
Objective
-
Vital Signs
Temp Pulse Resp BP Pulse Ox
98.1 F 89 18 123/63 96
09/21/24 23:33 09/21/24 23:33 09/21/24 23:33 09/21/24 23:33 09/21/24 23:33
Intake and Output
09/20/24 09/21/24 09/22/24
06:59 06:59 06:59
Intake Total 680 / 680 2760 / 2760 2640 / 2640
Output Total 1565 / 1565 3200 / 3200 3600 / 3600
Balance -885 / -885 -440 / -440 -960 / -960
Intake:
Oral fluids 680 / 680 2760 / 2760 2640 / 2640
Output:
Urine, Leon 3200 / 3200 3600 / 3600
Straight cath output 1565 / 1565
Other:
Number of approximated MODERATE 1
amounts of urine
How many times incontinent 1
MODERATE amount urine
How many times incontinent 1
SATURATED amount urine
Physical Exam
-
Leon draining pedro urine
[2024-09-22 07:07] VITALS: BP 106/63
[2024-09-22 08:02] LABS: Glucose - Point of Care 239 mg/dl (70-99)
[2024-09-22 08:12] LABS: Hematocrit 24.5 % (39.0-52.0); Hemoglobin 7.9 g/dL (13.0-18.0); Mean Corp Hgb Conc. 32.2 g/dL (33.0-37.0); Mean Corpuscular Hgb 26.9 pg (27.0-31.0); Mean Corpuscular Volume 83.3 fL (80.0-94.0); Mean Platelet Volume 8.8 fL (7.4-10.4); Platelet Count 264 10^3/uL (130-400); Red Blood Cell Count 2.94 10^6/uL (4.70-6.10); Red Cell Dist. Width 14.7 % (11.5-14.5); White Blood Cell Count 6.4 10^3/uL (4.8-10.8)
[2024-09-22] MEDS: CIPRO 500 MG PO ×2 (08:18→20:25)
[2024-09-22] MEDS: GEODON 80 MG PO ×2 (08:18→20:25)
[2024-09-22] MEDS: ASPIR LOW (ENTERIC COATED) 81 MG PO (08:18)
[2024-09-22] MEDS: FARXIGA 10 MG PO (08:19)
[2024-09-22] MEDS: COGENTIN 1 MG PO ×2 (08:19→20:25)
[2024-09-22] MEDS: LIPITOR 20 MG PO (08:19)
[2024-09-22] MEDS: FLOMAX 0.4 MG PO (08:19)
[2024-09-22] MEDS: NOVOLOG FLEXPEN-MODERATE RESISTANCE 3 UNITS SC (08:19)
[2024-09-22] MEDS: MIRALAX 17 GRAMS PO (08:19)
[2024-09-22] MEDS: COLACE 100 MG PO ×2 (08:19→20:25)
[2024-09-22] MEDS: SANTYL OINTMENT 1 APPLIC TOPICAL (08:20)
[2024-09-22] MEDS: LOTRIMIN 1% TOPICAL SOLUTION 1 APPLIC TOPICAL ×2 (08:21→20:25)
--- NOTE | 2024-09-22 08:45 | W.PN.HOSP.TC ---
Today's Communication/Plan
-
see A/P
Assessment / Plan
Assessment / Plan
A/P:
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
hematuria likely exacerbated by Xarelto and aspirin
s/p OR cystoscopy, clot evacuation
restarted aspirin
continue to hold Xarelto, defer to urology and hematology about restarting (see below). Patient does have a filter.
failed voiding trial. Leon replaced 09/20.
# Sepsis POA with Enterobacter bacteremia secondary to complicated UTI
blood culture with Enterobacter.
blood culture from 09/20 so far negative
Echo no obvious vegetation noted.
Continue antibiotic cipro; plan 2 week course 09/17-09/30 per ID
# RLE DVT
Xarelto on hold due hematuria.
Discussed with urology, suspect will need to be off anticoagulation for a while.
Hematology following.
Dr Russ discussed with IR and it appears that patient already has a filter. Patient or family do not remember when IVC filter was placed. No need for further management per IR.
Repeat Ultrasound noted nonocclusive thrombus within the right common femoral, femoral and popliteal veins, overall similar in appearance to prior.
# Suspect acute blood loss anemia 2/2 hematuria
s/p 1 unit PRBC.
Hgb now stable, at 7.9 today
# DM, uncontrolled
HgbA1c 11 %
restarted Jardiance
He was started with insulin Lantus, adjust to 7 units HS
add aspart 3 units AC
cont sliding scale
# Hypokalemia
Repleted
# N/V likely 2/2 constipation, resolved
# Weight Loss, possibly related to malignancy vs uncontrolled DM vs Mounjaro
Discontinued Mounjaro
d/w sister about age appropriate routine cancer screening, can be done with PCP
# possible ringworm LLE
started antifungals
# RLE Venous Ulcer
Wound Care following
# Sacrum stage 1 PI
# Hyperlipidemia
Continue atorvastatin
# Severe protein calorie malnutrition of chronic illness
# ?Bipolar Disorder?
Patient unable to tells my why is on Geodon and Cogentin
Attempt to obtain records from PCP to clarify history; sister reported she will assist
# Right Inguinal Hernia, Reduced in ED
DVT proph: changed to Lovenox SQ
Code Status: Full Code
Dispo: PT OT recc SNF
Discussed with sister Anila on 09/22
Anticipated Discharge: 24 - 48 hours
Subjective/Interval History
-
Date of Service: September 22, 2024
Objective Data
-
Labs:
Laboratory Results
09/22/24
06:22
WBC 6.4
Hgb 7.9 L
Hct 24.5 L
Plt Count 264
Sodium Pending
Potassium Pending
Chloride Pending
Carbon Dioxide Pending
BUN Pending
Creatinine Pending
Glucose Pending
Calcium Pending
Vital Signs:
Vital Signs
Temp Pulse Resp BP Pulse Ox
36.5 C 85 18 106/63 98
09/22/24 07:07 09/22/24 07:07 09/22/24 07:07 09/22/24 07:07 09/22/24 07:07
I&O
09/21/24 09/22/24 09/23/24
06:59 06:59 06:59
Intake Total 2760 / 2760 2640 / 2640
Output Total 3200 / 3200 3600 / 3600
Balance -440 / -440 -960 / -960
Review of Systems
-
All other systems: Reviewed and negative
Physical Exam
-
General: Well Developed, Well Nourished, No Apparent Distress, Comfortable and Conversant
HEENT: Normocephalic, Atraumatic, Nose Appears Normal and Ears Appear Normal
Respiratory: Clear to Auscultation and Non Labored Respirations; Negative Accessory Resp Muscle Use
Cardiac: Regular Rhythm and S1/S2
GI: Soft, Nontender, Nondistended and Normal Bowel Sounds
Genito-urinary: Leon
Skin: Warm and Dry
Neuro: Awake and Alert
Psych: Calm and Intact Judgement/Insight (somewhat)
Data Reviewed
-
CT Scan: Report Reviewed by me
Labs: Labs Reviewed by me
[2024-09-22 08:51] LABS: Blood Urea Nitrogen 31 mg/dl (9-20); Calcium 8.2 mg/dl (8.4-10.2); Carbon Dioxide 26 mmol/L (22-30); Chloride 105 mmol/L (98-107); Estimated Creatinine Clearance 48 ml/min; Glucose 191 mg/dl (70-99); Magnesium 1.9 mg/dl (1.6-2.3); Potassium 4.1 mmol/L (3.5-5.1); Sodium 136 mmol/L (135-145); eGFR > 60.00
[2024-09-22 12:22] LABS: Glucose - Point of Care 275 mg/dl (70-99)
[2024-09-22] MEDS: NOVOLOG FLEXPEN-MODERATE RESISTANCE 5 UNITS SC (12:41)
[2024-09-22] MEDS: NOVOLOG FLEXPEN 3 UNITS SC ×2 (12:42→16:46)
[2024-09-22 14:38] VITALS: BP 109/65; PULSE 93; O2SAT 99
[2024-09-22 15:40] VITALS: BP 115/66
[2024-09-22 16:36] LABS: Glucose - Point of Care 368 mg/dl (70-99)
[2024-09-22] MEDS: NOVOLOG FLEXPEN-MODERATE RESISTANCE 9 UNITS SC (16:46)
[2024-09-22] MEDS: LOVENOX 30 MG SC (16:48)
[2024-09-22 21:28] LABS: Glucose - Point of Care 159 mg/dl (70-99)
[2024-09-22] MEDS: DESYREL 200 MG PO (21:53)
[2024-09-22] MEDS: LANTUS 0.07 UNITS SC (22:21)
[2024-09-22 23:10] VITALS: BP 127/59
[2024-09-23 05:55] VITALS: BMI 16.5
[2024-09-23 07:00] VITALS: BP 107/53
[2024-09-23 07:52] LABS: Glucose - Point of Care 135 mg/dl (70-99)
[2024-09-23] MEDS: ZOFRAN 4 MG IV (08:01)
[2024-09-23] MEDS: COLACE 100 MG PO ×2 (08:07→19:57)
[2024-09-23] MEDS: ASPIR LOW (ENTERIC COATED) 81 MG PO (08:07)
[2024-09-23] MEDS: MIRALAX 17 GRAMS PO (08:07)
[2024-09-23] MEDS: FARXIGA 10 MG PO (08:07)
[2024-09-23] MEDS: GEODON 80 MG PO ×2 (08:08→19:57)
[2024-09-23] MEDS: FLOMAX 0.4 MG PO (08:08)
[2024-09-23] MEDS: COGENTIN 1 MG PO ×2 (08:08→19:56)
[2024-09-23] MEDS: LIPITOR 20 MG PO (08:08)
[2024-09-23] MEDS: CIPRO 500 MG PO ×2 (08:08→19:56)
[2024-09-23] MEDS: NOVOLOG FLEXPEN 3 UNITS SC ×3 (08:11→17:44)
[2024-09-23] MEDS: NOVOLOG FLEXPEN-MODERATE RESISTANCE SC (08:11)
[2024-09-23] MEDS: SANTYL OINTMENT 1 APPLIC TOPICAL (08:11)
[2024-09-23 08:29] LABS: Blood Urea Nitrogen 25 mg/dl (9-20); Calcium 8.1 mg/dl (8.4-10.2); Carbon Dioxide 30 mmol/L (22-30); Chloride 102 mmol/L (98-107); Estimated Creatinine Clearance 53 ml/min; Glucose 118 mg/dl (70-99); Magnesium 1.8 mg/dl (1.6-2.3); Potassium 4.2 mmol/L (3.5-5.1); Sodium 137 mmol/L (135-145); eGFR > 60.00
[2024-09-23 08:30] LABS: Hematocrit 26.1 % (39.0-52.0); Mean Corp Hgb Conc. 30.7 g/dL (33.0-37.0); Mean Corpuscular Hgb 26.7 pg (27.0-31.0); Mean Platelet Volume 8.7 fL (7.4-10.4); Platelet Count 339 10^3/uL (130-400); Red Cell Dist. Width 14.8 % (11.5-14.5); White Blood Cell Count 8.4 10^3/uL (4.8-10.8)
--- NOTE | 2024-09-23 08:56 | W.PN.URO.CBU ---
Today's Communication / Plan
-
keep ramírez teach lot lfoley leg bag care
Assessment / Plan
-
Gross hematuria: resolved
UTI
Urethral meatal stenosis
bilateral hydroureteronephrosis
Anemia
Urine retention -- persistent keep ramírez may restart anticaogulants but iobserve for hematuria
Diagnosis
-
Date of Service: September 23, 2024
-
Patient Diagnosis:
Post Op Day:
Patient Diagnosis:
Gross hematuria
UTI
Urethral meatal stenosis
bilateral hydroureteronephrosis
Anemia
Urine retention
Subjective
-
hematuria resolved but cannot void
Objective
-
Vital Signs
Temp Pulse Resp BP Pulse Ox
98.3 F 83 18 127/59 99
09/22/24 23:10 09/22/24 23:10 09/22/24 23:10 09/22/24 23:10 09/22/24 23:10
Intake and Output
09/22/24 09/23/24 09/24/24
06:59 06:59 06:59
Intake Total 2640 / 2640 1080 / 1080
Output Total 3600 / 3600 3250 / 3250
Balance -960 / -960 -2170 / -2170
Intake:
Oral fluids 2640 / 2640 1080 / 1080
Output:
Urine, Ramírez 3600 / 3600 3250 / 3250
Laboratory Results
09/23/24 06:38
09/23/24 06:38
Review of Systems
-
: Difficulty Voiding
Physical Exam
-
General - well developed, well nourished, no acute distress
Chest - clear bilaterally
Abdomen - soft, non-tender, positive bowel sounds, no CVAT, no incisional pain or distention
Genitalia - normal
Rectal - normal
Skin - warm & dry with no rash
Neuro - AOx3, no motor deficits
Extremities - no clubbing, no cyanosis, no edema
Incision - clean, dry
Dressing - clean, dry, intact
Care Review
Data Reviewed
Discussed with: Nursing
--- NOTE | 2024-09-23 09:01 | W.PN.HOSP.TC ---
Today's Communication/Plan
-
see A/P
Assessment / Plan
Assessment / Plan
A/P:
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
hematuria likely exacerbated by Xarelto and aspirin
s/p OR cystoscopy, clot evacuation
restarted aspirin
continue to hold Xarelto, defer to urology and hematology about restarting (see below). Patient does have a filter.
failed voiding trial. Leon replaced 09/20.
# Sepsis POA with Enterobacter bacteremia secondary to complicated UTI
blood culture with Enterobacter.
blood culture from 09/20 negative.
Echo no obvious vegetation noted.
Continue antibiotic Cipro; plan 2 week course 09/17-09/30 per ID.
# RLE DVT
Xarelto on hold due hematuria.
Discussed with urology, suspect will need to be off anticoagulation for a while.
Hematology following.
Dr Russ discussed with IR and it appears that patient already has a filter. Patient or family do not remember when IVC filter was placed. No need for further management per IR.
Repeat Ultrasound noted nonocclusive thrombus within the right common femoral, femoral and popliteal veins, overall similar in appearance to prior.
# Suspect acute blood loss anemia 2/2 hematuria
s/p 1 unit PRBC.
Hgb now stable, at 8.0 today
# DM, uncontrolled
HgbA1c 11 %
restarted Jardiance
He was started with insulin Lantus, adjust to 7 units HS
added aspart 3 units AC
cont sliding scale coverage
# Hypokalemia
Repleted
# N/V likely 2/2 constipation, resolved
# Weight Loss, possibly related to malignancy vs uncontrolled DM vs Mounjaro
Discontinued Mounjaro
d/w sister about age appropriate routine cancer screening, can be done with PCP
# possible ringworm LLE
started antifungals
# RLE Venous Ulcer
Wound Care following
# Sacrum stage 1 PI
# Hyperlipidemia
Continue atorvastatin
# Severe protein calorie malnutrition of chronic illness
# ?Bipolar Disorder?
Patient unable to tells my why is on Geodon and Cogentin
Attempt to obtain records from PCP to clarify history; sister reported she will assist
# Right Inguinal Hernia, Reduced in ED
DVT proph: changed to Lovenox SQ
Code Status: Full Code
Dispo: PT OT recc SNF
Discussed with sister Anila on 09/22
Anticipated Discharge: Within 24 hours
Subjective/Interval History
-
Date of Service: September 23, 2024
Objective Data
-
Labs:
Laboratory Results
09/23/24
06:38
WBC 8.4
Hgb 8.0 L
Hct 26.1 L
Plt Count 339 D
Sodium 137
Potassium 4.2
Chloride 102
Carbon Dioxide 30
BUN 25 H
Creatinine 0.9
Glucose 118 H
Calcium 8.1 L
Vital Signs:
Vital Signs
Temp Pulse Resp BP Pulse Ox
36.8 C 83 18 127/59 99
09/22/24 23:10 09/22/24 23:10 09/22/24 23:10 09/22/24 23:10 09/22/24 23:10
I&O
09/22/24 09/23/24 09/24/24
06:59 06:59 06:59
Intake Total 2640 / 2640 1080 / 1080
Output Total 3600 / 3600 3250 / 3250
Balance -960 / -960 -2170 / -2170
Review of Systems
-
All other systems: Reviewed and negative
Physical Exam
-
General: Well Developed, Well Nourished, No Apparent Distress, Comfortable and Conversant
HEENT: Normocephalic, Atraumatic, Nose Appears Normal and Ears Appear Normal
Respiratory: Clear to Auscultation and Non Labored Respirations; Negative Accessory Resp Muscle Use
Cardiac: Regular Rhythm and S1/S2
GI: Soft, Nontender, Nondistended and Normal Bowel Sounds
Genito-urinary: Leon
Skin: Warm and Dry
Neuro: Awake and Alert
Psych: Calm and Intact Judgement/Insight (somewhat)
Data Reviewed
-
CT Scan: Report Reviewed by me
Labs: Labs Reviewed by me
[2024-09-23] MEDS: LOTRIMIN 1% TOPICAL SOLUTION 1 APPLIC TOPICAL ×2 (11:51→22:41)
[2024-09-23 11:55] LABS: Glucose - Point of Care 234 mg/dl (70-99)
[2024-09-23] MEDS: NOVOLOG FLEXPEN-MODERATE RESISTANCE 3 UNITS SC (11:55)
[2024-09-23 15:00] VITALS: BP 104/60
[2024-09-23 17:39] LABS: Glucose - Point of Care 315 mg/dl (70-99)
[2024-09-23] MEDS: NOVOLOG FLEXPEN-MODERATE RESISTANCE 7 UNITS SC (17:45)
[2024-09-23] MEDS: LOVENOX 30 MG SC (17:49)
[2024-09-23] MEDS: FLUSH (NSS) 1 FLUSH IV (20:01)
[2024-09-23 21:38] LABS: Glucose - Point of Care 237 mg/dl (70-99)
[2024-09-23] MEDS: LANTUS 0.07 UNITS SC (22:41)
[2024-09-23] MEDS: DESYREL 200 MG PO (22:42)
[2024-09-23 23:00] VITALS: BP 120/62
[2024-09-24 05:59] VITALS: BMI 16.3
[2024-09-24 07:14] LABS: Glucose - Point of Care 201 mg/dl (70-99)
[2024-09-24 07:30] VITALS: BP 108/51
--- NOTE | 2024-09-24 08:23 | W.PN.HOSP.TC ---
Today's Communication/Plan
-
see A/P
Dispo planning to SNF
Assessment / Plan
Assessment / Plan
A/P:
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
hematuria likely exacerbated by Xarelto and aspirin
s/p OR cystoscopy, clot evacuation
restarted aspirin
continue to hold Xarelto, defer to urology and hematology about restarting (see below). Patient does have a filter.
failed voiding trial. Leon replaced 09/20.
# Sepsis POA with Enterobacter bacteremia secondary to complicated UTI
blood culture with Enterobacter.
blood culture from 09/20 negative.
Echo no obvious vegetation noted.
Continue antibiotic Cipro; plan 2 week course 09/17-09/30 per ID.
# RLE DVT
Xarelto on hold due hematuria.
Discussed with urology, suspect will need to be off anticoagulation for a while.
Hematology following.
Dr Russ discussed with IR and it appears that patient already has a filter. Patient or family do not remember when IVC filter was placed. No need for further management per IR.
Repeat Ultrasound noted nonocclusive thrombus within the right common femoral, femoral and popliteal veins, overall similar in appearance to prior.
# Suspect acute blood loss anemia 2/2 hematuria
s/p 1 unit PRBC.
Hgb now stable, at 8.0
# DM, uncontrolled
HgbA1c 11 %
restarted Jardiance
He was started with insulin Lantus, adjusted to 10 units HS
added aspart, adjust to 5 units AC
cont sliding scale coverage
# Hypokalemia
Repleted
# N/V likely 2/2 constipation, resolved
# Weight Loss, possibly related to malignancy vs uncontrolled DM vs Mounjaro
Discontinued Mounjaro
d/w sister about age appropriate routine cancer screening, can be done with PCP
# possible ringworm LLE
started antifungals
# RLE Venous Ulcer
Wound Care following
# Sacrum stage 1 PI
# Hyperlipidemia
Continue atorvastatin
# Severe protein calorie malnutrition of chronic illness
# ?Bipolar Disorder?
Patient unable to tells my why is on Geodon and Cogentin
Attempt to obtain records from PCP to clarify history; sister reported she will assist
# Right Inguinal Hernia, Reduced in ED
DVT proph: changed to Lovenox SQ
Code Status: Full Code
Dispo: PT OT recc SNF
Discussed with sister Anila on 09/22
DW CM
Anticipated Discharge: Within 24 hours
Subjective/Interval History
-
Date of Service: September 24, 2024
Objective Data
-
Labs:
Laboratory Results
09/24/24
06:23
WBC Pending
Hgb Pending
Hct Pending
Plt Count Pending
Sodium Pending
Potassium Pending
Chloride Pending
Carbon Dioxide Pending
BUN Pending
Creatinine Pending
Glucose Pending
Calcium Pending
Vital Signs:
Vital Signs
Temp Pulse Resp BP Pulse Ox
36.6 C 79 18 120/62 98
09/23/24 23:00 09/23/24 23:00 09/23/24 23:00 09/23/24 23:00 09/23/24 23:00
I&O
09/23/24 09/24/24 09/25/24
06:59 06:59 06:59
Intake Total 1080 / 1080 600 / 600
Output Total 3250 / 3250 3550 / 3550
Balance -2170 / -2170 -2950 / -2950
Review of Systems
-
All other systems: Reviewed and negative
Physical Exam
-
General: Well Developed, No Apparent Distress, Comfortable and Conversant
HEENT: Normocephalic, Atraumatic, Nose Appears Normal and Ears Appear Normal
Respiratory: Clear to Auscultation and Non Labored Respirations; Negative Accessory Resp Muscle Use
Cardiac: Regular Rhythm and S1/S2
GI: Soft, Nontender, Nondistended and Normal Bowel Sounds
Genito-urinary: Leon
Skin: Warm and Dry
Neuro: Awake and Alert
Psych: Calm and Intact Judgement/Insight (somewhat)
Data Reviewed
-
CT Scan: Report Reviewed by me
Labs: Labs Reviewed by me
[2024-09-24 08:37] LABS: Hematocrit 23.8 % (39.0-52.0); Hemoglobin 7.5 g/dL (13.0-18.0); Mean Corp Hgb Conc. 31.5 g/dL (33.0-37.0); Mean Corpuscular Hgb 27.4 pg (27.0-31.0); Mean Corpuscular Volume 86.9 fL (80.0-94.0); Mean Platelet Volume 8.9 fL (7.4-10.4); Platelet Count 379 10^3/uL (130-400); Red Blood Cell Count 2.74 10^6/uL (4.70-6.10); Red Cell Dist. Width 15.2 % (11.5-14.5); White Blood Cell Count 9.4 10^3/uL (4.8-10.8)
[2024-09-24] MEDS: NOVOLOG FLEXPEN-MODERATE RESISTANCE 3 UNITS SC (09:05)
[2024-09-24] MEDS: SANTYL OINTMENT 1 APPLIC TOPICAL (09:08)
[2024-09-24] MEDS: ASPIR LOW (ENTERIC COATED) 81 MG PO (09:08)
[2024-09-24] MEDS: MIRALAX 17 GRAMS PO (09:08)
[2024-09-24] MEDS: FLOMAX 0.4 MG PO (09:08)
[2024-09-24] MEDS: CIPRO 500 MG PO ×2 (09:08→21:36)
[2024-09-24] MEDS: FARXIGA 10 MG PO (09:08)
[2024-09-24] MEDS: LIPITOR 20 MG PO (09:08)
[2024-09-24] MEDS: COLACE 100 MG PO ×2 (09:08→21:36)
[2024-09-24] MEDS: LOTRIMIN 1% TOPICAL SOLUTION 1 APPLIC TOPICAL ×2 (09:09→21:37)
[2024-09-24] MEDS: COGENTIN 1 MG PO ×2 (09:11→21:36)
[2024-09-24] MEDS: GEODON 80 MG PO ×2 (09:11→21:36)
[2024-09-24] MEDS: NOVOLOG FLEXPEN SC (09:19)
[2024-09-24 10:34] LABS: Blood Urea Nitrogen 29 mg/dl (9-20); Calcium 8.2 mg/dl (8.4-10.2); Carbon Dioxide 27 mmol/L (22-30); Chloride 104 mmol/L (98-107); Estimated Creatinine Clearance 52 ml/min; Glucose 143 mg/dl (70-99); Magnesium 1.9 mg/dl (1.6-2.3); Potassium 4.1 mmol/L (3.5-5.1); Sodium 138 mmol/L (135-145); eGFR > 60.00
--- NOTE | 2024-09-24 11:00 | W.PN.URO.CBU ---
Today's Communication / Plan
-
teach pt ramírez care
Assessment / Plan
-
Gross hematuria: resolved
UTI
Urethral meatal stenosis
bilateral hydroureteronephrosis
Anemia
Urine retention -- persistent keep ramírez may restart anticaogulants but iobserve for hematuria
Diagnosis
-
Date of Service: September 24, 2024
-
Patient Diagnosis:
Post Op Day:
Patient Diagnosis:
Post Op Day:
Patient Diagnosis:
Gross hematuria
UTI
Urethral meatal stenosis
bilateral hydroureteronephrosis
Anemia
Urine retention
Subjective
-
no hematuria cannot void
Objective
-
Vital Signs
Temp Pulse Resp BP Pulse Ox
98.5 F 71 16 108/51 96
09/24/24 07:30 09/24/24 07:30 09/24/24 07:30 09/24/24 07:30 09/24/24 07:30
Intake and Output
09/23/24 09/24/24 09/25/24
06:59 06:59 06:59
Intake Total 1080 / 1080 600 / 600
Output Total 3250 / 3250 3550 / 3550
Balance -2170 / -2170 -2950 / -2950
Intake:
Oral fluids 1080 / 1080 600 / 600
Output:
Urine, Ramírez 3250 / 3250 2250 / 2250
Urine, Voided 1300 / 1300
Laboratory Results
09/24/24 06:23
09/24/24 06:23
Review of Systems
-
: Difficulty Voiding
Physical Exam
-
General - well developed, well nourished, no acute distress
Chest - clear bilaterally
Abdomen - soft, non-tender, positive bowel sounds, no CVAT, no incisional pain or distention
Genitalia - normal
Rectal - normal
Skin - warm & dry with no rash
Neuro - AOx3, no motor deficits
Extremities - no clubbing, no cyanosis, no edema
Incision - clean, dry
Dressing - clean, dry, intact
[2024-09-24 12:05] LABS: Glucose - Point of Care 260 mg/dl (70-99)
[2024-09-24] MEDS: NOVOLOG FLEXPEN-MODERATE RESISTANCE 5 UNITS SC ×2 (12:21→17:21)
[2024-09-24] MEDS: NOVOLOG FLEXPEN 5 UNITS SC ×2 (12:22→17:22)
[2024-09-24 15:20] VITALS: BP 99/55
[2024-09-24 16:48] LABS: Glucose - Point of Care 267 mg/dl (70-99)
[2024-09-24] MEDS: LOVENOX 30 MG SC (17:24)
[2024-09-24 21:25] LABS: Glucose - Point of Care 305 mg/dl (70-99)
[2024-09-24] MEDS: LANTUS 0.1 UNITS SC (21:37)
[2024-09-24] MEDS: DESYREL 200 MG PO (21:37)
[2024-09-24 22:52] VITALS: BP 106/53
[2024-09-25 06:00] VITALS: BMI 16.8
[2024-09-25 07:19] LABS: Glucose - Point of Care 59 mg/dl (70-99)
[2024-09-25 07:30] VITALS: BP 93/44
[2024-09-25 07:48] LABS: Glucose - Point of Care 174 mg/dl (70-99)
[2024-09-25 09:08] VITALS: BP 100/40; BP 101/45; PULSE 71; O2SAT 98
--- NOTE | 2024-09-25 09:12 | W.PN.HOSP.TC ---
Today's Communication/Plan
-
see A/P
Assessment / Plan
Assessment / Plan
A/P:
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
hematuria likely exacerbated by Xarelto and aspirin
s/p OR cystoscopy, clot evacuation
restarted aspirin
continue to hold Xarelto, defer to urology and hematology about restarting (see below). Patient does have a filter.
failed voiding trial. Leon replaced 09/20.
# Sepsis POA with Enterobacter bacteremia secondary to complicated UTI
blood culture with Enterobacter.
blood culture from 09/20 negative.
Echo no obvious vegetation noted.
Continue antibiotic Cipro; plan 2 week course 09/17-09/30 per ID.
# RLE DVT
Xarelto on hold due hematuria.
Discussed with urology, suspect will need to be off anticoagulation for a while.
Hematology following.
Dr Russ discussed with IR and it appears that patient already has a filter. Patient or family do not remember when IVC filter was placed. No need for further management per IR.
Repeat Ultrasound noted nonocclusive thrombus within the right common femoral, femoral and popliteal veins, overall similar in appearance to prior.
# Suspect acute blood loss anemia 2/2 hematuria
s/p 1 unit PRBC.
Hgb now stable, at 8.0
# DM, uncontrolled
HgbA1c 11 %
restarted Jardiance
He was started with insulin Lantus, adjust from 10 to 5 units HS (noted hypoglycemia which improved with juice)
Cont aspart 5 units AC
cont sliding scale coverage
# Hypokalemia
Repleted
# N/V likely 2/2 constipation, resolved
# Weight Loss, possibly related to malignancy vs uncontrolled DM vs Mounjaro
Discontinued Mounjaro
d/w sister about age appropriate routine cancer screening, can be done with PCP
# possible ringworm LLE
started antifungals
# RLE Venous Ulcer
Wound Care following
# Sacrum stage 1 PI
# Hyperlipidemia
Continue atorvastatin
# Severe protein calorie malnutrition of chronic illness
# ?Bipolar Disorder?
Patient unable to tells my why is on Geodon and Cogentin
Attempt to obtain records from PCP to clarify history; sister reported she will assist
# Right Inguinal Hernia, Reduced in ED
DVT proph: changed to Lovenox SQ
Code Status: Full Code
Dispo: PT OT recc SNF
updated sister Anila on the phone. 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 Right now, it seems that risk seems higher (with hematuria) than benefit. However, there is the possibility of PE development in
setting of RLE DVT (although this DVT appears to be chronic). Plan is to cont observe without OAC and this can be readdressed later with his PCP.
DW CM
Anticipated Discharge: Today
Subjective/Interval History
-
Date of Service: September 25, 2024
Objective Data
-
Labs:
Laboratory Results
09/25/24
07:09
WBC Pending
Hgb Pending
Hct Pending
Plt Count Pending
Sodium Pending
Potassium Pending
Chloride Pending
Carbon Dioxide Pending
BUN Pending
Creatinine Pending
Glucose Pending
Calcium Pending
Vital Signs:
Vital Signs
Temp Pulse Resp BP Pulse Ox
36.4 C 75 18 93/44 94
09/25/24 07:30 09/25/24 07:30 09/25/24 07:30 09/25/24 07:30 09/25/24 07:30
I&O
09/24/24 09/25/24 09/26/24
06:59 06:59 06:59
Intake Total 600 / 600 840 / 840
Output Total 3550 / 3550 2099 / 2099
Balance -2950 / -2950 -1260 / -1260
[2024-09-25 09:31] LABS: Blood Urea Nitrogen 27 mg/dl (9-20); Calcium 8.2 mg/dl (8.4-10.2); Carbon Dioxide 30 mmol/L (22-30); Chloride 100 mmol/L (98-107); Estimated Creatinine Clearance 61 ml/min; Glucose 40 mg/dl (70-99); Potassium 3.5 mmol/L (3.5-5.1); Sodium 136 mmol/L (135-145); eGFR > 60.00
[2024-09-25 09:33] VITALS: BP 100/40; BP 101/45; O2SAT 98
[2024-09-25] MEDS: NOVOLOG FLEXPEN-MODERATE RESISTANCE 1 UNITS SC ×3 (09:42→17:16)
[2024-09-25] MEDS: FLOMAX 0.4 MG PO (09:43)
[2024-09-25] MEDS: NOVOLOG FLEXPEN 5 UNITS SC ×3 (09:43→17:16)
[2024-09-25] MEDS: FARXIGA 10 MG PO (09:43)
[2024-09-25] MEDS: COGENTIN 1 MG PO ×2 (09:43→21:27)
[2024-09-25] MEDS: COLACE 100 MG PO ×2 (09:43→21:28)
[2024-09-25] MEDS: LIPITOR 20 MG PO (09:44)
[2024-09-25] MEDS: MIRALAX 17 GRAMS PO (09:44)
[2024-09-25] MEDS: GEODON 80 MG PO ×2 (09:44→21:28)
[2024-09-25] MEDS: SANTYL OINTMENT 1 APPLIC TOPICAL (09:44)
[2024-09-25] MEDS: ASPIR LOW (ENTERIC COATED) 81 MG PO (09:44)
[2024-09-25] MEDS: CIPRO 500 MG PO ×2 (09:44→21:27)
[2024-09-25] MEDS: LOTRIMIN 1% TOPICAL SOLUTION TOPICAL (09:46)
--- NOTE | 2024-09-25 09:46 | W.PN.URO.CBU ---
Today's Communication / Plan
-
keep foiley
Assessment / Plan
-
Gross hematuria: resolved
UTI
Urethral meatal stenosis
bilateral hydroureteronephrosis
Anemia
Urine retention -- persistent keep ramírez may restart anticaogulants but iobserve for hematuria
Diagnosis
-
Date of Service: September 25, 2024
-
Patient Diagnosis:
Post Op Day:
Patient Diagnosis:
Post Op Day:
Patient Diagnosis:
Post Op Day:
Patient Diagnosis:
Gross hematuria
UTI
Urethral meatal stenosis
bilateral hydroureteronephrosis
Anemia
Urine retention
Subjective
-
feeling stronger
Objective
-
Vital Signs
Temp Pulse Resp BP Pulse Ox
97.6 F 75 18 93/44 94
09/25/24 07:30 09/25/24 07:30 09/25/24 07:30 09/25/24 07:30 09/25/24 07:30
Intake and Output
09/24/24 09/25/24 09/26/24
06:59 06:59 06:59
Intake Total 600 / 600 840 / 840
Output Total 3550 / 3550 2099
Balance -2950 / -2950 -1260 / -1260
Intake:
Oral fluids 600 / 600 840 / 840
Output:
Urine, Ramírez 2250 / 2250 2099
Urine, Voided 1300 / 1300
Laboratory Results
09/25/24 07:09
Review of Systems
-
: Difficulty Voiding
Physical Exam
-
General - well developed, well nourished, no acute distress
Chest - clear bilaterally
Abdomen - soft, non-tender, positive bowel sounds, no CVAT, no incisional pain or distention
Genitalia - normal
Rectal - normal
Skin - warm & dry with no rash
Neuro - AOx3, no motor deficits
Extremities - no clubbing, no cyanosis, no edema
Incision - clean, dry
Dressing - clean, dry, intact
[2024-09-25 09:59] LABS: Hematocrit 24.9 % (39.0-52.0); Hemoglobin 7.8 g/dL (13.0-18.0); Mean Corp Hgb Conc. 31.3 g/dL (33.0-37.0); Mean Corpuscular Hgb 27.1 pg (27.0-31.0); Mean Corpuscular Volume 86.5 fL (80.0-94.0); Mean Platelet Volume 8.7 fL (7.4-10.4); Platelet Count 462 10^3/uL (130-400); Red Blood Cell Count 2.88 10^6/uL (4.70-6.10); Red Cell Dist. Width 15.3 % (11.5-14.5); White Blood Cell Count 12.2 10^3/uL (4.8-10.8)
[2024-09-25 12:17] LABS: Glucose - Point of Care 176 mg/dl (70-99)
--- NOTE | 2024-09-25 13:56 | CM ---
CM spoke w/ Jasmyne/[facility] who stated facility is able to accept pt.
CM initiated auth, called [employer] pre cert dept ([phone]).
Spoke w/ Latesha garcia. Auth approved beginning 09/25 NRD 09/29. Facility to call [phone] for review
Auth reference # [id number]
CM updated Jasmyne w/ approved auth. Per Jasmyne, facility may potentially have a bed for pt tomorrow, will confirm w/ [facility].
Updated pt's sister, Anila, and hospitalist
Per Anila, family will transport pt at d/c
Plan: [facility]
[2024-09-25 15:00] VITALS: BP 101/67
[2024-09-25] MEDS: KCL 40 MEQ PO (15:22)
[2024-09-25 16:45] LABS: Glucose - Point of Care 167 mg/dl (70-99)
[2024-09-25] MEDS: LOVENOX 30 MG SC (17:17)
[2024-09-25 21:24] LABS: Glucose - Point of Care 242 mg/dl (70-99)
[2024-09-25] MEDS: DESYREL 200 MG PO (21:28)
[2024-09-25] MEDS: LANTUS 0.05 UNITS SC (21:30)
[2024-09-25] MEDS: LOTRIMIN 1% TOPICAL SOLUTION 1 APPLIC TOPICAL (21:31)
[2024-09-25 23:00] VITALS: BP 102/56
[2024-09-26 06:00] VITALS: BMI 16.4
[2024-09-26 06:54] VITALS: BP 90/49
[2024-09-26 07:10] VITALS: BP 92/50
[2024-09-26 07:29] LABS: Glucose - Point of Care 138 mg/dl (70-99)
[2024-09-26] MEDS: NOVOLOG FLEXPEN-MODERATE RESISTANCE SC (07:30)
[2024-09-26] MEDS: COGENTIN 1 MG PO (08:08)
[2024-09-26] MEDS: LIPITOR 20 MG PO (08:08)
[2024-09-26] MEDS: FARXIGA 10 MG PO (08:08)
[2024-09-26] MEDS: GEODON 80 MG PO (08:08)
[2024-09-26] MEDS: MIRALAX 17 GRAMS PO (08:08)
[2024-09-26] MEDS: FLOMAX 0.4 MG PO (08:08)
[2024-09-26] MEDS: COLACE 100 MG PO (08:08)
[2024-09-26] MEDS: ASPIR LOW (ENTERIC COATED) 81 MG PO (08:08)
[2024-09-26] MEDS: SANTYL OINTMENT TOPICAL (08:09)
[2024-09-26] MEDS: CIPRO 500 MG PO (08:12)
[2024-09-26] MEDS: LOTRIMIN 1% TOPICAL SOLUTION 1 APPLIC TOPICAL (08:13)
[2024-09-26] MEDS: NOVOLOG FLEXPEN 5 UNITS SC ×2 (08:14→12:02)
[2024-09-26 08:17] LABS: Hematocrit 23.2 % (39.0-52.0); Hemoglobin 7.5 g/dL (13.0-18.0); Mean Corp Hgb Conc. 32.3 g/dL (33.0-37.0); Mean Corpuscular Hgb 27.2 pg (27.0-31.0); Mean Corpuscular Volume 84.1 fL (80.0-94.0); Mean Platelet Volume 8.8 fL (7.4-10.4); Platelet Count 470 10^3/uL (130-400); Red Blood Cell Count 2.76 10^6/uL (4.70-6.10); Red Cell Dist. Width 15.4 % (11.5-14.5); White Blood Cell Count 8.1 10^3/uL (4.8-10.8)
[2024-09-26 08:25] LABS: Blood Urea Nitrogen 28 mg/dl (9-20); Calcium 8.2 mg/dl (8.4-10.2); Carbon Dioxide 27 mmol/L (22-30); Chloride 100 mmol/L (98-107); Estimated Creatinine Clearance 59 ml/min; Glucose 119 mg/dl (70-99); Potassium 4.5 mmol/L (3.5-5.1); Sodium 133 mmol/L (135-145); eGFR > 60.00
--- NOTE | 2024-09-26 09:30 | W.PN.HOSP.TC ---
Addendum entered and electronically signed by Lindsey Copeland MD 09/26/24 15:04:
total DC time 40 min
Original Note:
Today's Communication/Plan
-
see A/P
Assessment / Plan
Assessment / Plan
A/P:
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
hematuria likely exacerbated by Xarelto and aspirin
s/p OR cystoscopy, clot evacuation
restarted aspirin
continue to hold Xarelto, defer to urology and hematology about restarting (see below). Patient does have a filter.
failed voiding trial. Leon replaced 09/20. Outpt Uro follow up for TOV
# Sepsis POA with Enterobacter bacteremia secondary to complicated UTI
blood culture with Enterobacter.
blood culture from 09/20 negative.
Echo no obvious vegetation noted.
Continue antibiotic Cipro; plan 2 week course 09/17 - 09/30 per ID.
# RLE DVT
Xarelto on hold due hematuria.
Discussed with urology, suspect will need to be off anticoagulation for a while.
Hematology following.
Dr Russ discussed with IR and it appears that patient already has a filter. Patient or family do not remember when IVC filter was placed. No need for further management per IR.
Repeat Ultrasound noted nonocclusive thrombus within the right common femoral, femoral and popliteal veins, overall similar in appearance to prior.
# Suspect acute blood loss anemia 2/2 hematuria
s/p 1 unit PRBC.
Hgb now stable, at 8.0
# DM, uncontrolled
HgbA1c 11 %
restarted Jardiance
He was started with insulin Lantus cont 5 units HS
Cont aspart 5 units AC
cont sliding scale coverage
# Hypokalemia
Repleted
# N/V likely 2/2 constipation, resolved
# Weight Loss
Discontinued Mounjaro
d/w sister about age appropriate routine cancer screening, can be done with PCP
# possible ringworm LLE
started antifungals
# RLE Venous Ulcer
Wound Care following
# Sacrum stage 1 PI
# Hyperlipidemia
Continue atorvastatin
# Severe protein calorie malnutrition of chronic illness
# ?Bipolar Disorder?
Patient unable to tells my why is on Geodon and Cogentin
Attempt to obtain records from PCP to clarify history; sister reported she will assist
# Right Inguinal Hernia, Reduced in ED
DVT proph: changed to Lovenox SQ
Code Status: Full Code
Dispo: PT OT recc SNF
updated sister Anila on the phone 09/25.
We discussed about the risk and benefit of restarting OAC (such as SPOT CLEANER Xarelto). Right now, it seems that risk seems higher (with hematuria) than benefit. However, there is the possibility of PE development in setting of RLE DVT. Plan is to cont
observe without OAC and this can be readdressed later with his PCP.
DW CM
Anticipated Discharge: 24 - 48 hours
Subjective/Interval History
-
Date of Service: September 26, 2024
Objective Data
-
Labs:
Laboratory Results
09/26/24
07:13
WBC 8.1
Hgb 7.5 L
Hct 23.2 L
Plt Count 470 H
Sodium 133 L
Potassium 4.5 D
Chloride 100
Carbon Dioxide 27
BUN 28 H
Creatinine 0.8
Glucose 119 H
Calcium 8.2 L
Vital Signs:
Vital Signs
Temp Pulse Resp BP Pulse Ox
36.6 C 66 18 92/50 98
09/26/24 07:10 09/26/24 07:10 09/26/24 07:10 09/26/24 07:10 09/26/24 07:10
I&O
09/25/24 09/26/24 09/27/24
06:59 06:59 06:59
Intake Total 840 / 840 1200 / 1200
Output Total 2099
Balance -1260 / -1260 -750 / -750
Review of Systems
-
All other systems: Reviewed and negative
Physical Exam
-
General: Well Developed, No Apparent Distress, Comfortable, Conversant and Appears Chronically Ill
HEENT: Normocephalic, Atraumatic, Nose Appears Normal and Ears Appear Normal
Respiratory: Clear to Auscultation and Non Labored Respirations; Negative Accessory Resp Muscle Use
Cardiac: Regular Rhythm and S1/S2
GI: Soft, Nontender, Nondistended and Normal Bowel Sounds
Genito-urinary: Leon
Skin: Warm and Dry
Neuro: Awake and Alert
Psych: Calm and Intact Judgement/Insight (somewhat)
Data Reviewed
-
CT Scan: Report Reviewed by me
Labs: Labs Reviewed by me
[2024-09-26 11:20] LABS: Glucose - Point of Care 206 mg/dl (70-99)
[2024-09-26] MEDS: NOVOLOG FLEXPEN-MODERATE RESISTANCE 3 UNITS SC (12:03)
--- NOTE | 2024-09-26 12:32 | CM ---
Addendum entered by Ana Laura Haas 09/26/24 16:45:
spoke with Jasmyne and notified family will transport approx 4-5pm
Addendum entered by Ana Laura Haas 09/26/24 13:20:
IMM explained & signed. In chart
Original Note:
Spoke with Jasmyne [phone] at [facility].
They will accept patient today.
Auth approved beginning 09/25 NRD 09/29. Facility to call [phone] for review
Auth reference # [id number]
tt Dr. Copeland
plan: [facility]
Report #: [phone]
Fax #: [phone]
family will transport
--- NOTE | 2024-09-26 14:38 | W.DCSUMMARY ---
Discharge Summary
Discharge Data
Date of Admission: 09/15/24
Date of Discharge: 09/26/24
-
Pending Results: No
Hospital Course
Principal Diagnosis:
Gross hematuria with bilateral hydronephrosis due to ureteral meatal stenosis
Acute blood loss anemia due to hematuria
Sepsis with Enterobacter bacteremia secondary to complicated urinary tract infection
Recent Right lower extremity (RLE) deep vein thrombosis (DVT)
Uncontrolled diabetes, now insulin-dependent (insulin started during hospital stay)
Weight Loss. Discontinued Mounjaro
Chronic Diagnoses:�
Right leg venous ulcer
Hyperlipidemia, on atorvastatin
Severe protein calorie malnutrition of chronic illness
?Bipolar Disorder?, on Geodon and Cogentin prior to admission
Right Inguinal Hernia, reduced in ED
Consultations:�
Urology
Hematology
Infectious disease
Procedures:�
None
Clinical course:�
This is a 69-year-old male, with past medical history as stated above, who presented with gross hematuria.
Problem 1:
Gross hematuria with bilateral hydronephrosis due to ureteral meatal stenosis.
This was associated with acute blood loss anemia, and the patient received 1 unit PRBC this admission.
He underwent OR cystoscopy for clot evacuation.
Following the procedure he was restarted with aspirin.
However, his prior to admission Xarelto was held. Benefit and risk of holding Xarelto was discussed with his sister, and the decision was made to hold it temporarily. This can be further readdressed with his PCP outpatient.
Of note, the patient does have an IVC filter although he is unclear when that was placed.
He failed voiding trial while in the hospital, and Leon was replaced on 09/20/2024.
He can follow-up with urology for repeat voiding trial outpatient.
Problem 2:
Sepsis with Enterobacter bacteremia secondary to complicated urinary tract infection.
His initial blood cultures were positive for Enterobacter.
Repeat blood culture from 09/20 was negative.
He can continue with antibiotic Cipro until 09/30/2024.
Problem 3:
Recent RLE DVT.
His ultrasound from 08/28/2024 showed right leg DVT.
His prior to Xarelto was held due to current hematuria.
Of note, the patient does have an IVC filter although he is unclear when that was placed.
Benefit and risk of holding Xarelto was discussed with his sister, and the decision was made to hold it temporarily. This can be further readdressed with his PCP outpatient.
Problem 4:
Uncontrolled diabetes, now insulin-dependent (insulin started during hospital stay).
His HgbA1c was noted to be high at 11%.
He was started with insulin this admission and he can continue with Lantus 5 unit at bedtime, and aspart 5 units AC.
Problem 5:
Weight Loss.
His prior to admission Mounjaro was discontinued.
His sister has been informed that the patient can follow-up with his PCP for routine cancer screening following discharge.
As for the rest of his medical problems, they were stable during his hospital stay.
Discharge Plan
-
Patient Disposition: [facility]
Discharge Diagnosis/Procedures: Enterobacter bacteremia secondary to complicated urinary tract infection;
Right leg deep vein thrombosis;
Diabetes now insulin-dependent;
Gross hematuria with bilateral hydroureteronephrosis due to ureteral meatal stenosis
Condition: Fair
Diet: As tolerated and Diabetic, Carb Controlled
Activity: As tolerated
Wound Care: Wound Care Instructions
R leg: clean with saline, Santyl to slough,adaptic, alginate, abd pad and jesse daily.
clotrimazole ointment to L anterior leg as directed
Heels: apply A&D to L heel fissure daily
Follow up at wound care center call for an appointment.
Referrals:
Isidoro Mendez MD [Family Provider] - in less than 1 week
Omari Wells MD [Active] - ([facility] MAKE APPR E FOLLOW UP DR BRIAN [phone] TO SCHEDULE HOSPITAL; FOLOW UP AND VOIDING TRIAL)
Additional Discharge Medication Instructions: stop Xarelto
Continue Cipro until 09/30/24.
Continue Lantus at 5 units HS and Aspart 5 units AC (with each meal)
Stop Mourjaro
Prescriptions:
New
ciprofloxacin HCl 500 mg Tablet
500 mg PO BID 5 Days Qty: 10 0RF
tamsulosin 0.4 mg Capsule
0.4 mg PO DAILY Qty: 30 0RF
insulin glargine [Lantus Solostar U-100 Insulin] 100 unit/mL (3 mL) insulin pen
5 unit SC QPM Qty: 15 0RF
insulin aspart U-100 [Novolog FlexPen U-100 Insulin] 100 unit/mL (3 mL) insulin pen
5 unit SC AC Qty: 15 0RF
Continued
ziprasidone HCl 80 mg capsule
80 mg PO BID
atorvastatin 20 mg tablet
20 mg PO DAILY
aspirin 81 mg tablet,delayed release (DR/EC)
81 mg PO DAILY
trazodone 100 mg tablet
200 mg PO HS
benztropine 1 mg tablet
1 mg PO BID
Santyl 250 unit/gram ointment
1 applic TOPICAL DAILY
Jardiance 25 mg tablet
25 mg PO DAILY
Centrum 18-400 mg-mcg Tablet
1 tab PO DAILY
Discontinued
glyburide-metformin 5-500 mg tablet
2 tab PO DAILY
Mounjaro 7.5 mg/0.5 mL pen injector
7.5 mg SC TU
Xarelto 20 mg tablet
20 mg PO DAILY
Discharge Orders:
Discharge Patient (As Directed); Ordered 09/26/24
Ordered By: Lindsey Copeland
Discharge Date and Time
Print Language: CHINESE
[2024-09-26 15:15] VITALS: BP 121/61
== END 2024-09-26 16:16 | DRG 871 ==
LOC: 4 WEST ACU 14:02
PROVIDERS: Internal Medicine; Nurse Practitioner; Physician Assistant Medical; ADMITTING PHYSICIAN Hospitalist; ATTENDING PHYSICIAN Internal Medicine; CONSULT PHYSICIAN Specialist; CONSULT PHYSICIAN Student in an Organized Health Care Education/Training Program; EMERGENCY PHYSICIAN Emergency Medicine; FAMILY PHYSICIAN Internal Medicine; OTHER PHYSICIAN Internal Medicine Hematology & Oncology
PROC: 30233N1 Transfusion of Nonautologous Red Blood Cells into Peripheral Vein, Percutaneous Approach (ICD-10-PCS; 2024-09-17)
PROC: 0TCB8ZZ Extirpation of Matter from Bladder, Via Natural or Artificial Opening Endoscopic (ICD-10-PCS; 2024-09-18)
DX: A41.59 Other Gram-negative sepsis (principal); E43 Unspecified severe protein-calorie malnutrition; I82.531 Chronic embolism and thrombosis of right popliteal vein; I82.511 Chronic embolism and thrombosis of right femoral vein; N13.6 Pyonephrosis; D62 Acute posthemorrhagic anemia; Z68.1 Body mass index [BMI] 19.9 or less, adult; D68.32 Hemorrhagic disorder due to extrinsic circulating anticoagulants; I10 Essential (primary) hypertension; E11.65 Type 2 diabetes mellitus with hyperglycemia; E78.00 Pure hypercholesterolemia, unspecified; F31.9 Bipolar disorder, unspecified; K40.90 Unilateral inguinal hernia, without obstruction or gangrene, not specified as recurrent; N35.911 Unspecified urethral stricture, male, meatal; K59.00 Constipation, unspecified; T45.515A Adverse effect of anticoagulants, initial encounter; I87.8 Other specified disorders of veins; E87.6 Hypokalemia; L89.151 Pressure ulcer of sacral region, stage 1; R33.8 Other retention of urine; E86.0 Dehydration; R31.0 Gross hematuria; Z87.891 Personal history of nicotine dependence; Z79.899 Other long term (current) drug therapy; Z79.01 Long term (current) use of anticoagulants; Z79.82 Long term (current) use of aspirin; Z79.84 Long term (current) use of oral hypoglycemic drugs
CPT/HCPCS: 74177; 80048; 80053; 81003; 81015; 82607; 82728; 82746; 82947; 82962; 83036; 83540; 83550; 83735; 85014; 85018; 85025; 85027; 85610; 85730; 86850; 86900; 86901; 86920; 87040; 87070; 87077; 87086; 87149; 87186; 87205; 93005; 93306; 93971; 97110; 97116; 97162; 97166; 97530; 97535; 99285; P9016; Q9967